=== PATIENT | female | born 1990 | race Caucasian/White ===

== ENCOUNTER → 2018-07-13 13:33 | Outpatient (CLI) | payer SELFPAY ==
[2018-06-22 13:21] VITALS: BMI 25.2
--- NOTE | 2018-07-13 13:36 | US_ITS ---
STUDY: SECOND AND THIRD TRIMESTER OBSTETRICAL ULTRASOUND REASON FOR EXAM: Female, 27 years old. Routine survey. LMP: Unknown. TECHNIQUE: Transabdominal TECHNICAL QUALITY: Adequate. PRIOR ULTRASOUND: None. FINDINGS: There is a single intrauterine fetus. The fetus is in a cephalic, and oblique right presentation. There is demonstrated cardiac activity with a heart rate of 149 bpm. There is a normal amniotic fluid volume. The largest amniotic fluid pocket measures 2.8 cm. The amniotic fluid index (FRANK) is 12.9 cm. The placenta is posterior in location and is not low lying. There are Grade 2 placental changes. The cervix measures 3.6 cm in length. The bilateral adnexal regions are normal. BIOMETRY: BPD: 7.1 cm: 28 weeks, 4 days HC: 27.3 cm: 29 weeks, 6 days AC: 24.4 cm: 28 weeks, 5 days FL: 5.2 cm: 28 weeks, 0 days age by current US: 28 weeks, 6 days. ADA by current US: 09/29/2018. Estimated weight: 1237 grams, +/- 181 grams, 63 %. ANATOMY: Gender: Female Cranium: Normal lateral ventricles. Normal choroid plexus. Normal cerebellum. Normal cisterna magna. Normal face, nose and lips. Chest: Normal 4-chamber heart. Abdomen/Pelvis: Normal diaphragm. Normal stomach, there is subtle hyper echogenicity within the stomach of uncertain etiology. Normal abdominal wall. Normal cord insertion. Normal 3 vessel cord. Normal kidneys. Normal bladder. Spine: Normal cervical spine. Normal thoracic spine. Normal lumbar spine. Normal sacrum. Extremities: Normal bilateral upper extremities. Normal bilateral lower extremities. US/OB Anatomy Scan IMPRESSION: Single live intrauterine at 20 weeks, 6 days by current ultrasound with ADA of 09/29/2018. Heart rate at 149 bpm. No suspicious sonographic findings, there is a subtle hyper echogenicity within the stomach of uncertain etiology. Electronically Signed: Riccardo Santana MD at 15:22 EDT , Service support ,
[2018-07-13 16:22] LABS: Absolute Neutrophil Count 7.8 X10^3/uL (2.0-7.7); Basophil# 0.02 X10^3/uL; Basophil% 0.2 % (0-1); Eosinophils% 1.1 % (0-5); Hematocrit 33.7 % (37-47); Hemoglobin 11.2 g/dl (12.0-15.0); Lymphocyte % 9.5 % (19-41); Mean Corp Hgb Conc 33.2 g/gl (32-36); Mean Corpuscular Hgb 28.6 pg (27.0-32.0); Mean Platelet Vol. 10.1 fl (6.2-12.0); Monocyte% 7.4 % (0-10); Neutrophil # 7.78 X10^3/uL (2.7-7.7); Neutrophil % 81.6 % (47-70); Platelet Count 196 K/mm3 (150-450); RBC Distribution Width CV 13.3 % (11.6-14.6); RBC Distribution Width SD 40.9 fl (35.1-43.9); Red Blood Count 3.92 M/mm3 (4.2-5.4); White Blood Count 9.5 K/mm3 (4.4-11.0)
[2018-07-13 16:32] LABS: Glucose Challenge Gest 1H 50g 102 mg/dL (70-140)
[2018-07-13 16:34] LABS: POSITIVE COUNT NO; POSITIVE DIFFERENTIAL NO; POSITIVE MORPHOLOGY NO
== END ==
PROVIDERS: Nurse Practitioner Women's Health; Referring Provider Obstetrics & Gynecology; Visit Provider Obstetrics & Gynecology
DX: Z34.90 Encounter for supervision of normal pregnancy, unspecified, unspecified trimester (principal)
CPT/HCPCS: 36415; 76805; 82950; 85025; 86850; 86900

== ENCOUNTER → 2018-08-01 15:09 | Outpatient (CLI) | payer SELFPAY ==
[2018-08-01 15:04] VITALS: BMI 25.2
[2018-08-01 16:44] LABS: Rubella IgG 121.9 IU/mL
[2018-08-03 03:29] LABS: Rapid Plasmin Reagin (RPR) NONREACTIVE (NONREACTIVE)
[2018-08-03 10:29] LABS: HEPATITIS B SURFACE AG Negative (Negative)
== END ==
PROVIDERS: Visit Provider Obstetrics & Gynecology
DX: Z34.80 Encounter for supervision of other normal pregnancy, unspecified trimester (principal)
CPT/HCPCS: 36415; 86592; 86762; 87340

== ENCOUNTER → 2018-08-14 17:47 | Outpatient (CLI) | payer SELFPAY ==
[2018-08-14 14:05] VITALS: BMI 25.2
== END ==
PROVIDERS: Referring Provider Obstetrics & Gynecology; Visit Provider Obstetrics & Gynecology
DX: Z34.90 Encounter for supervision of normal pregnancy, unspecified, unspecified trimester (principal)
CPT/HCPCS: 87086; 87088

== ENCOUNTER → 2018-09-10 16:30 | Outpatient (CLI) | payer SELFPAY ==
[2018-09-10 14:37] VITALS: BMI 25.2
== END ==
PROVIDERS: Referring Provider Obstetrics & Gynecology; Visit Provider Obstetrics & Gynecology
DX: Z34.80 Encounter for supervision of other normal pregnancy, unspecified trimester (principal)
CPT/HCPCS: 87081

== ENCOUNTER → 2018-10-03 13:12 | Outpatient (CLI) | payer SELFPAY ==
[2018-10-03 12:43] VITALS: BMI 26.9
[2018-10-03 13:10] VITALS: BMI 27.1
--- NOTE | 2018-10-03 13:17 | US_ITS ---
STUDY: SECOND AND THIRD TRIMESTER OBSTETRICAL ULTRASOUND - LIMITED REASON FOR EXAM: Female, 27 years old. growth assessment. LMP: 12/30/2017, with ADA 10/06/2018. PRIOR ULTRASOUND: None. TECHNIQUE: Transabdominal ultrasound evaluation was performed. FINDINGS: Single live intrauterine gestation, cardiac rate 132 bpm, cephalic presentation with upper neck and shoulders presenting. The cervix is not visualized. Placenta grade 2 posterior not low-lying. The maternal adnexa are not characterized. Amniotic fluid index 14.2 cm, maximum vertical pocket 5.6). BIOMETRY: BPD: 9.8: 40 weeks, 1 days HC: 35.4: 41 weeks, 3 days AC: 35.7: 39 weeks, 4 days FL: 7.5: 38 weeks, 4 days age by prior US: 40 weeks, 0 days. ADA by prior US: 10/03/2018. age by current US: 40 weeks, 4 days. ADA by current US: 09/29/2018. Estimated weight: 3938 grams, +/- 560 grams, 74% percentile. Limited anatomic images was obtained for assessment of dates, positioning and viability. In limited survey no gross anatomic abnormality was observed. US/OB Limited With Biometrics IMPRESSION: No acute or maternal unreality is evident. Cephalic presentation, normal amniotic fluid index. Biometrics is noted above, closely concordant with expected dates. Electronically Signed: Juancarlos Merchant MD at 15:07 EDT Tel , Service support ,
== END ==
PROVIDERS: Referring Provider Obstetrics & Gynecology; Visit Provider Obstetrics & Gynecology
DX: Z34.93 Encounter for supervision of normal pregnancy, unspecified, third trimester (principal); Z3A.39 39 weeks gestation of pregnancy
CPT/HCPCS: 76816

== ENCOUNTER 2018-10-12 03:02 | Inpatient (IN) | payer SELFPAY ==
[2018-10-10 15:06] VITALS: BMI 27.1
[2018-10-12] MEDS: Lactated Ringers 1,000 ML 50 ML IV (03:27)
[2018-10-12 03:29] VITALS: BMI 26.6
[2018-10-12 03:49] LABS: Absolute Lymphocyte Count 1.51 X10^3/uL (0.83-4.51); Absolute Neutrophil Count 8.1 X10^3/uL (2.0-7.7); Basophil# 0.03 X10^3/uL; Basophil% 0.3 % (0-1); Eosinophil# 0.09 X10^3/uL; Eosinophils% 0.9 % (0-5); Hematocrit 37.4 % (37-47); Hemoglobin 12.6 g/dL (12.0-15.0); Lymphocyte # 1.51 X10^3/ul (4.0); Lymphocyte % 14.5 % (19-41); Mean Corp Hgb Conc 33.7 g/dL (32-36); Mean Corpuscular Hgb 28.4 pg (27.0-32.0); Mean Corpuscular Volume 84.2 fL (81-99); Mean Platelet Vol. 10.7 fl (6.2-12.0); Monocyte# 0.67 X10^3/uL; Monocyte% 6.4 % (0-10); NRBC Flagged by Analyzer 0 % (0-5); Neutrophil # 8.08 X10^3/uL (2.7-7.7); Neutrophil % 77.6 % (47-70); Platelet Count 193 K/mm3 (150-450); RBC Distribution Width CV 13.6 % (11.6-14.6); RBC Distribution Width SD 41.7 fl (35.1-43.9); Red Blood Count 4.44 M/mm3 (4.2-5.4); White Blood Count 10.4 K/mm3 (4.4-11.0)
[2018-10-12] MEDS: Oxytocin 30 units/NS 500 ml 30 UNITS/500 ML IV.SOLN 334 UNITS IV (04:04)
--- NOTE | 2018-10-12 04:29 | PCM.HPOB.BLA ---
- Problem List (1) Active labor at term Status: Acute (2) Abnormal test Status: Acute Comment: echogenic stomach (3) Desires (vaginal after ) trial Status: Acute Comment: 88.9% consent signed (4) H/O section Status: Acute Comment: Breech presentation- 2017 (5) Status: Acute Qualifiers: Comment: declines genetic, carrier screening. [facility]. (6) Supervision of other normal Status: Acute Comment: PRR (declines gc chlamydia) ADA 10/06/18 gender surprise PC: Mario Oliver Marie, Anna, Spouse:Enedelia History and Physical Date of Admission: 10/12/18 Intake Vital Signs 10/10/18 Body Mass Index (BMI) 27.1 10/10/18 Height 5 ft 5 in 10/10/18 Weight: 162 lb 10/10/18 Body Mass Index (BMI) 26.9 10/10/18 Blood Pressure 110/80 Intake Visit Reasons: 40 week ob Chief Complaint: est ob Sugar Laboratory Assistant Required: No Is patient in pain?: No Allergies No Known Allergies Allergy (Verified 10/10/18 15:06) Medications vitamin,calcium,xftbahlf-whjm-tyytc acid tablet 1 tab PO DAILY 06/22/18 [History Confirmed 10/10/18] Last Menstral Period: 12/30/17 Zika: Zika virus screening: Negative : No PFSH PFSH Surgical History H/O section (Acute) Social History (Updated 10/11/18 @ 18:27 by Irene Saleem MD) adopted: No household members: family housing: house number of children: 4 current occupation: homemaker pets and animals: No alcohol intake: never do you feel safe at home: Yes additional social history: Spouse: Enedelia Pregancy History 5 Elective abortions Hx Para 4 Spontaneous abortions Hx # Term Pregnancies 4 Ectopic pregnancies Hx # Pregnancies Multiple births # of living children 4 Past Pregnancies Del. Date Name GA/Weeks Outcome Route Bth Weight Gen Labor Lgth Anesthesia Del Locatn Provider FOB Unknown 2010- Melody 40 live - full term 7pounds Female [facility] Unknown 39 live - full term 6pounds 13oz Male [facility] Unknown 2014-Qian 41 live - full term 6 pounds 5 oz Female none [facility] Unknown 2017- Teresa 41 live - full term 6 pounds Female epidural [facility] Delivery Date: On 06/22/18 @ 13:40 Caren Navarro no complications possible 2degree tear Delivery Date: On 06/22/18 @ 13:41 Caren Navarro blood loss- but no replacement therapy given Delivery Date: On 06/22/18 @ 13:41 Caren Navarro No complication Delivery Date: On 06/22/18 @ 13:41 Caren Navarro Breech presentation HPI 40 week ob: Details: BRANDON SANCHEZ is a 27 year old who presents at 6 cm dilated and delivers within 45 minutes without complications. labor total lasted less than 4 hours. OB Visit ADA Calculator Estimated Delivery Date Method Current WG Current Estimate 10/06/18 LMP (Certain) 40w 5d Expected Delivery Route/Plan consent signed Specific Issue/Plans minimal intervention Initial Weight: 140 lb Date EGA Weight BP Urine Prot Glucose FHR FuHt Pres Mov CTX Dilation Effaced St Visit Note 06/22/18 24w 6d 151 lb 8 oz (+11 lb 8 oz) 110/60 150 no vb lof good fm no regular ctx. transfer of care to have . 07/13/18 27w 6d 153 lb (+13 lb) 110/66 Negative Negative 160 27 Active absent No VB, LOF. Had anatomy US prior to this appt today. 08/01/18 30w 4d 155 lb 2 oz (+15 lb 2 oz) 114/70 Negative Negative 150 30 29 Active no vb lof good fm no regular ctx 08/14/18 32w 3d 158 lb (+18 lb) 100/62 08/27/18 34w 2d 160 lb (+20 lb) 116/80 150 34 Active no vb lof good fm no regular ctx. 09/10/18 36w 2d 161 lb 6 oz (+21 lb 6 oz) 136/78 Negative Negative 140 36 Cephalic Active absent 1.5 -1 no vb lof good fm no regular ctx 09/21/18 37w 6d 162 lb (+22 lb) 102/70 Negative Negative 147 37 Cephalic Active absent 1.5 -2 NO reg CTX. NO VB, LOF. 09/28/18 38w 6d 163 lb 3 oz (+23 lb 3 oz) 122/70 Negative Negative 140 37 Cephalic Active absent 1.5 Yes no vb lof good fm n oregular ctx 10/03/18 39w 4d 162 lb (+22 lb) 98/70 98/70 140 37 Cephalic Active transfer of care from F, some nausea intermittent. no vb now, had some bleeding last week previous note from 10/03/18 charted on wrong patient. no vb lof good fm n oregular ctx- get growth us for low fundal height 10/10/18 40w 4d 162 lb (+22 lb) 110/80 Negative Negative 140 no vb lof good fm no regular ctx Visit Notes Visit Date: 10/10/18 ??no vb lof good fm no regular ctx ??Irene Saleem MD on 10/11/18 Visit Date: 10/03/18 ??no vb lof good fm n oregular ctx- get growth us for low fundal height ??Irene Saleem MD on 10/03/18 ??previous note from 10/03/18 charted on wrong patient. ??Irene Saleem MD on 10/03/18 ??[facility] care from [facility], some nausea intermittent. no vb now, had some bleeding last week ??Irene Saleem MD on 10/03/18 Visit Date: 09/28/18 ??no vb lof good fm n oregular ctx ??Irene Saleem MD on 09/28/18 Visit Date: 09/21/18 ??NO reg CTX. NO VB, LOF. ??JAYSHREE Soriano on 09/21/18 Visit Date: 09/10/18 ??no vb lof good fm no regular ctx ??Irene Saleem MD on 09/10/18 Visit Date: 08/27/18 ??no vb lof good fm no regular ctx. ??Irene Saleem MD on 08/27/18 Visit Date: 08/14/18 ??No visit notes to display Visit Date: 08/01/18 ??no vb lof good fm no regular ctx ??Irene Saleem MD on 08/01/18 Visit Date: 07/13/18 ??No VB, LOF. Had anatomy US prior to this appt today. ??Nicolle Mehta NP-C on 07/13/18 Visit Date: 06/22/18 ??no vb lof good fm no regular ctx. transfer of care to have . ??Irene Saleem MD on 06/22/18 ACOG First Trimester First Trimester: Desire for , Alcohol, Tobacco Cessation, Illicit/Recreational Drug/Substance Use, Intimate Partner Violence, Barriers to care, Unstable Housing, Communication Barriers, Environmental/Work Hazards, Anticipated Course of Care, Toxoplasmosis Precations, Use of Any medications, Sexual activity, Exercise, Dental Care, Sauna/Hot tub use, Seat Belt use, Childbirth classes/Hospital facilities, , Travel, Indications for US and Screening for Aneuploidy Second Trimester Second Trimester: Signs and Symptoms of Labor, Selecting a care provider, Reproductive Life Planning, Care Planning, Tobacco Cessation, Depression/Anxiety and Intimate Partner Violence Third Trimester Third Trimester: Pain Management Plans, Labor support person(s), Immediate Larc, Movement Monitoring and Feeding Yes ; discussed Trial of Labor after Counseling or discussed Circumcision preference Diagnostics Diagnostics Labs Blood Type A POSITIVE 07/13/18 Antibody Screen NEGATIVE 07/13/18 Hct 33.7 % (37-47) L 07/13/18 Hgb 11.2 g/dl (12.0-15.0) L 07/13/18 Obstetrics Ultrasound 10/03/18 Rubella IgG Antibody 121.9 IU/mL 08/01/18 RPR NONREACTIVE (NONREACTIVE) 08/01/18 Hep Bs Antigen Negative (Negative) 08/01/18 Glucose 1 Hr 50 gm 102 mg/dL (70-140) 07/13/18 Details: HIV: Urine Culture: Sequential Screen: NIPT Screen: ROS Const Reports system reviewed and no additional complaints, except as docu Card Reports system reviewed and no additional complaints, except as docu Resp Reports system reviewed and no additional complaints, except as docu GI Reports system reviewed and no additional complaints, except as docu, Reports nausea Reports system reviewed and no additional complaints, except as docu Musc Reports system reviewed and no additional complaints, except as docu Exam Const General: cooperative, healthy appearing, comfortable, anxious HENMT Head: normal to inspection Nose: external nose normal Face and sinus: normal facial exam Neck Neck: normal visual inspection, full ROM, no lymphadenopathy Thyroid: thyroid normal Chest Chest palpation & inspection: normal inspection of the chest Resp Effort & Inspection: normal respiratory effort GI Inspection: normal to inspection Palpation: soft, other (gravid uterus) Other: vertex and appropriate size for gestational age Other: Cervical Exam: Extrem General: pedal edema Results [id number] Office Urine Glucose Negative Last Edit by Tierra Khalil on 10/10/18 15:09 Office Urine Protein Negative Last Edit by Tierra Khalil on 10/10/18 15:09 Assessment & Plan 27 yo @ 40w6d presents IAL for TOLAC precipitous spontaneous delivery uncomplicated routine care Orders Orders: POC Urinalysis 2 Dip (Clinic) 10/10/18 Coding Level of Care Code OB Routine Diagnoses Abnormal test O28.9 Desires (vaginal after ) trial O34.219 H/O section Z98.891 Supervision of other normal Z34.80 40 weeks gestation of Z3A.40 ??Weeks of gestation: 40 weeks
--- NOTE | 2018-10-12 04:33 | PCM.OPRPT ---
Problem List (1) Active labor at term Status: Acute (2) Abnormal test Status: Acute Comment: echogenic stomach (3) Desires (vaginal after ) trial Status: Acute Comment: 88.9% consent signed (4) H/O section Status: Acute Comment: Breech presentation- 2017 (5) Status: Acute Qualifiers: Comment: declines genetic, carrier screening. [facility]. (6) Supervision of other normal Status: Acute Comment: PRR (declines gc chlamydia) ADA 10/06/18 gender surprise PC: Mario Oliver Marie, Anna, Spouse:Enedelia Vaginal Delivery Maternal Presentation: Active Labor 27-year-old G5, P4 at 40 weeks 6 days presents in active labor for trial of labor after Amniotic Membrane Rupture Type: Artificial Amniotic Fluid Description: Clear Final ADA: 10/06/18 Gestational age: 40 Weeks and 6 Days Date of Procedure: 10/12/18 Pre-Operative Diagnosis: tolac Post-Operative Diagnosis: Surgery/ Procedure Performed: Spontaneous Vaginal Delivery Type of Anesthesia: Local with 1% lidocaine Description of Procedure: Patient began pushing and delivered the head in the NOMAN presentation. The head was delivered atraumatically . The anterior and posterior shoulders delivered without complication followed by the rest of the infant and the was placed on the maternal abdomen. Delayed cord clamping was employed for approximately 60 seconds. Cord was clamped and cut and gentle traction was applied to the cord and the placenta delivered spontaneously immediately following it was noted to be intact with three-vessel cord. The perineum and vagina were inspected and noted to have a small first-degree perineal laceration that was injected with 1% lidocaine and repaired with a 3-0 Vicryl stitch.. EBL was 500 cc. Patient and tolerated delivery well. Presentation: NOMAN Placental Delivery Description: Spontaneous Placenta Disposition: [facility] Cord Vessel Description: 3 Vessels Cord Entanglement: None Estimated Blood Loss: 500 Infant A gender: Female Episiotomy Description: None Laceration: Perineal Extension/lac, 1st degree Medications given after delivery: IV Pitocin Complications: None
[2018-10-12] MEDS: Oxytocin 30 units/NS 500 ml 30 UNITS/500 ML IV.SOLN 167 UNITS IV (04:34)
[2018-10-12] MEDS: 0.9% Saline Lock 10 ML Syringe IV (05:36)
--- NOTE | 2018-10-12 08:01 | DCINST_ITS ---
Additional Instructions: If you experience any of the following, contact your healthcare provider. * Bleeding that soaks a pad every hour for 2 hours * Fever 100.4 or higher * Unrelieved incision or abdominal pain * Swelling, redness, discharge or bleeding from your incision or episiotomy site * Your incision begins to separate * Problems urinating (including inability to urinate or burning while urinating). * Visual changes * Severe headache * Flu-like symptoms * Pain or redness in one of both of your breasts * Pain, warmth, tenderness or swelling in your legs, especially the calf area * Frequent nausea and vomiting * Symptoms of depression or anxiety If you experience any of the following, call 911 or go to the nearest Emergency Room. * Chest pain * Problems breathing * Seizure activity * Partial or complete paralysis of a body part, slurred speech, weakness or drooping of the face, or a sudden inability to walk or hold your balance Allergies/Adverse Reactions: Allergies No Known Allergies Allergy (Verified 10/10/18 15:06) Medications to take at Discharge vitamin,calcium,yaoquwxm-wzom-jrior acid tablet 1 tab PO DAILY 06/22/18 Primary Care Physician: Care Physician,No Primary [Primary Care Provider] - Test Results: Test results from this visit will be discussed in further detail at your follow- up appointment, if applicable.
--- NOTE | 2018-10-12 08:01 | PCM.DCVAG ---
Additional Instructions: If you experience any of the following, contact your healthcare provider. Bleeding that soaks a pad every hour for 2 hours Fever 100.4 or higher Unrelieved incision or abdominal pain Swelling, redness, discharge or bleeding from your incision or episiotomy site Your incision begins to separate Problems urinating (including inability to urinate or burning while urinating). Visual changes Severe headache Flu-like symptoms Pain or redness in one of both of your breasts Pain, warmth, tenderness or swelling in your legs, especially the calf area Frequent nausea and vomiting Symptoms of depression or anxiety If you experience any of the following, call 911 or go to the nearest Emergency Room. Chest pain Problems breathing Seizure activity Partial or complete paralysis of a body part, slurred speech, weakness or drooping of the face, or a sudden inability to walk or hold your balance Allergies/Adverse Reactions: Allergies No Known Allergies Allergy (Verified 10/10/18 15:06) Medications to take at Discharge vitamin,calcium,xqwwztcx-lcqx-fgadw acid tablet 1 tab PO DAILY 06/22/18 Primary Care Physician: Care Physician,No Primary [Primary Care Provider] - Test Results: Test results from this visit will be discussed in further detail at your follow-up appointment, if applicable.
[2018-10-12 08:15] VITALS: BP 109/68; PULSE 83; RESP 18; TEMP 37.1; O2SAT 99
[2018-10-12 08:53] LABS: HIV - WCH Non-Reactive (Nonreactive)
[2018-10-12 12:00] VITALS: BP 108/63; PULSE 88; RESP 18; TEMP 36.7
[2018-10-12 16:00] VITALS: BP 94/68; PULSE 94; RESP 18; TEMP 36.5
--- NOTE | 2018-10-12 17:37 | NURSING ---
Notified by Yossi Castro in lab that Chlamydia/gonorrhea test unable to run due to gross blood in specimen. Upon chart review it was noted pt had declined this test prenatally. Discussed with pt and pt wishes to decline test at this time. Dr. Hahn aware. No new orders for baby. Will notify Dr. Saleem on rounds.
--- NOTE | 2018-10-12 18:29 | NURSING ---
Reviewed and agree with all charting by Chris WHITMAN
[2018-10-12 20:01] VITALS: BP 97/71; PULSE 88; RESP 16; TEMP 36.7
[2018-10-12 23:58] VITALS: BP 97/60; PULSE 87; RESP 16; TEMP 36.3
[2018-10-13] MEDS: Ibuprofen 600 MG Tablet PO (00:07)
[2018-10-13 03:15] VITALS: BP 95/63; PULSE 81; RESP 18; TEMP 36.2
[2018-10-13 08:00] VITALS: BP 99/58; PULSE 70; RESP 16; TEMP 36.6
--- NOTE | 2018-10-13 10:48 | PCM.PN.OB ---
Patient Problems: Active and Suspected Problems (Last Reviewed 10/10/18 @ 15:06 by Tierra Khalil) Active labor at term (Acute) Subjective: doing well no complaints pain controlled no CP SOB N V ambulating well tolerating po lochia moderate, going well - Physical Exam General: Alert, Oriented x3 Vital Signs Temp Pulse Resp BP Pulse Ox 97.9 F 70 16 99/58 L 99 10/13/18 08:00 10/13/18 08:00 10/13/18 08:00 10/13/18 08:00 10/12/18 08:15 Oxygen Delivery Method Room Air Weight: 160 lb Body Mass Index (BMI) 26.6 Intake and Output for Last 24 Hours 10/11/18 10/12/18 10/13/18 23:59 23:59 23:59 Intake Total 400 / 400 Output Total 450 / 450 Balance -50 / -50 Laboratory Tests Past 24 Hrs 10/12/18 06:30 Chlam trachomat DNA PCR Cancelled N.gonorrhoeae DNA (PCR) Cancelled Medical Necessity - Tobacco Use Smoking Status: Never smoker Assessment/Plan All Active Problems (Last Reviewed 10/10/18 @ 15:06 by Tierra Khalil) Active labor at term (Acute) Abnormal test (Acute) Desires (vaginal after ) trial (Acute) H/O section (Acute) Supervision of other normal (Acute) (Acute) s/p PPD # 1 1. routine post delivery care 2. breast feeding- support given 3. rh positive 4. rubella immune
[2018-10-13 11:31] VITALS: BP 100/67; PULSE 89; RESP 16; TEMP 36.8
== END 2018-10-13 13:35 | disposition home or self-care (01) | DRG 807 ==
PROVIDERS: Admitting Provider Obstetrics & Gynecology; Visit Provider Obstetrics & Gynecology
DX: O34.219 Maternal care for unspecified type scar from previous cesarean delivery (principal); O70.0 First degree perineal laceration during delivery; Z37.0 Single live birth; Z3A.40 40 weeks gestation of pregnancy
CPT/HCPCS: 59050; 85025; 86703; 86850; 86900; 87491; 87591; 99218; J7120; A4216; G0378

== ENCOUNTER → 2018-11-23 14:24 | Outpatient (CLI) | payer SELFPAY ==
[2018-11-23 13:30] VITALS: BMI 26.6
[2018-11-28 12:10] LABS: HPV APTIMA, High Risk Negative (Negative)
== END ==
PROVIDERS: Referring Provider Obstetrics & Gynecology; Visit Provider Obstetrics & Gynecology
DX: Z12.4 Encounter for screening for malignant neoplasm of cervix (principal)
CPT/HCPCS: 87624; 88175; G0145

== ENCOUNTER → 2020-07-15 16:11 | Outpatient (CLI) | payer SELFPAY ==
[2018-11-23 13:30] VITALS: BMI 26.6
--- NOTE | 2020-07-15 16:17 | US_ITS ---
STUDY: SECOND AND THIRD TRIMESTER OBSTETRICAL ULTRASOUND - LIMITED REASON FOR EXAM: Female, 29 years old no care. LMP: Estimated LMP of 03/07/2020. PRIOR ULTRASOUND: None. TECHNIQUE: Transabdominal TECHNICAL QUALITY: Adequate. FINDINGS: There is a single intrauterine fetus. The fetus is in a cephalic presentation. There is demonstrated cardiac activity with a heart rate of 140 bpm. There is a normal amniotic fluid volume. The largest amniotic fluid pocket measures 5.35 cm. The placenta is posterior in location and is not low lying. There are Grade 1 placental changes. The cervix measures 3.08 cm in length. BIOMETRY: BPD: 4.95 cm: 20 weeks, 6 days HC: 17.88 cm: 20 weeks, 2 days AC: 14.75 cm: 20 weeks, 0 days FL: 3.14 cm: 19 weeks, 5 days Age by LMP: 18 weeks, 4 days. ADA by LMP: 12/12/2020. age by current US: 20 weeks, 2 days. ADA by current US: 11/30/2020. Estimated weight: 329 grams, +/- 49 grams, 90 percentile. An incidental finding is the presence of bilateral choroid cysts. US/OB Limited With Biometrics IMPRESSION: 1. Live single intrauterine at 20 weeks, 2 days. ADA is 11/30/2020. 2. EFW of 329 g. This is at the 99th percentile. 3. Adequate amniotic fluid. 4. Posterior grade 1 placenta. 5. Closed cervix at 3.08 cm length. 6. Bilateral choroid plexus cysts. Follow-up is recommended at which time a dedicated evaluation of anatomy couldn''t be performed. Electronically Signed: Stevie Pan DO at 17:58 EDT Tel [phone], Service support ,
== END ==
PROVIDERS: Referring Provider Obstetrics & Gynecology; Visit Provider Obstetrics & Gynecology
DX: O09.32 Supervision of pregnancy with insufficient antenatal care, second trimester (principal); Z3A.20 20 weeks gestation of pregnancy
CPT/HCPCS: 76816

== ENCOUNTER → 2020-07-20 | Outpatient (CLI) | payer SELFPAY ==
[2020-07-20 14:50] VITALS: BMI 25.8
== END | disposition home or self-care (01) ==
LOC: LABSPEC 16:26
PROVIDERS: Referring Provider Obstetrics & Gynecology; Visit Provider Obstetrics & Gynecology
DX: Z34.90 Encounter for supervision of normal pregnancy, unspecified, unspecified trimester (principal)
CPT/HCPCS: 87086; 87088

== ENCOUNTER → 2020-07-28 12:14 | Outpatient (CLI) | payer SELFPAY ==
[2020-07-20 14:50] VITALS: BMI 25.8
--- NOTE | 2020-07-28 12:16 | US_ITS ---
STUDY: SECOND AND THIRD TRIMESTER OBSTETRICAL ULTRASOUND REASON FOR EXAM: Female, 29 years old anatomy LMP: 02/28/2020. TECHNIQUE: Transabdominal and Transvaginal TECHNICAL QUALITY: Adequate. PRIOR ULTRASOUND: Comparison is made with prior study dated 07/15/2020. FINDINGS: There is a single intrauterine fetus. The fetus is in a breech presentation. There is demonstrated cardiac activity with a heart rate of 162 bpm. There is a normal amniotic fluid volume. The largest amniotic fluid pocket measures 5.4 cm x 8.5 cm. The amniotic fluid index (FRANK) is within normal limits. The placenta is posterior in location and is not low lying. The tip of the placenta is 2 cm from the cervical os. There are Grade 0 placental changes. The cervix measures 5 cm in length. The adnexal regions are not visualized. BIOMETRY: BPD: 5.32 cm: 22 weeks, 1 days HC: 20.04 cm: 22 weeks, 1 days AC: 17.25 cm: 22 weeks, 1 days FL: 3.67 cm: 21 weeks, 4 days CI: 79.9% FL/BPD: 60.9% FL/HC: FL/AC: 21.3% HC/AC: 1.16 age by current US: 21 weeks, 5 days. ADA by current US: 12/03/2020. Estimated weight: 469 grams, +/- 70 grams, 66.6 %. age by prior US: 22 weeks, 1 days. ADA by prior US: 11/30/2020. Age by LMP: 21 weeks, 4 days. ADA by LMP: 12/04/2020. ANATOMY: Gender: Male Cranium: Normal lateral ventricles. Stable small bilateral choroid plexus cysts. Normal cerebellum. Normal cisterna magna. Normal face, nose and lips. Chest: Normal 4-chamber heart. Abdomen/Pelvis: Normal diaphragm. Normal stomach. Normal abdominal wall. Normal cord insertion. Normal 3 vessel cord. Normal kidneys. Normal bladder. Spine: Normal cervical spine. Normal thoracic spine. Normal lumbar spine. Normal sacrum. Extremities: Normal bilateral upper extremities. Normal bilateral lower extremities. IMPRESSION: Single live intrauterine gestation with mean gestational age of 22 weeks and 1 day. The measurements obtained today fall within the normal expected range. Stable small bilateral choroid plexus cysts. Electronically Signed: Andrew Carpenter MD at 14:24 EDT , Service support , STUDY: FIRST TRIMESTER OBSTETRICAL ULTRASOUND REASON FOR EXAM: Female, 29 years old cervical length and placental placement. TECHNIQUE: Transvaginal TECHNICAL QUALITY: Adequate. PRIOR ULTRASOUND: None. FINDINGS: The cervical length is 5 cm. The tip of the placenta is 2 cm from the cervical os. US/OB Anatomy Scan IMPRESSION: The tip of the placenta is at 2 cm from the cervical os. Electronically Signed: Andrew Carpenter MD at 14:25 EDT , Service support ,
== END ==
PROVIDERS: Referring Provider Obstetrics & Gynecology; Visit Provider Obstetrics & Gynecology
DX: O09.92 Supervision of high risk pregnancy, unspecified, second trimester (principal); Z3A.22 22 weeks gestation of pregnancy
CPT/HCPCS: 76805; 76817

== ENCOUNTER → 2020-09-14 13:23 | Outpatient (CLI) | payer OTHER, SELFPAY ==
[2020-08-19 12:57] VITALS: BMI 25.8
[2020-09-14 13:53] LABS: Absolute Lymphocyte Count 1.34 X10^3/uL (0.83-4.51); Basophil# 0.03 X10^3/uL; Basophil% 0.3 % (0-1); Eosinophil# 0.12 X10^3/uL; Eosinophils% 1.3 % (0-5); Hematocrit 31.9 % (37-47); Hemoglobin 10.9 g/dL (12.0-15.0); Lymphocyte # 1.34 X10^3/ul (0.83-4.51); Lymphocyte % 14.6 % (19-41); Mean Corp Hgb Conc 34.2 g/dL (32-36); Mean Corpuscular Hgb 29.2 pg (27.0-32.0); Mean Corpuscular Volume 85.5 fL (81-99); Mean Platelet Vol. 9.6 fl (6.2-12.0); Monocyte# 0.66 X10^3/uL; Monocyte% 7.2 % (0-10); NRBC Flagged by Analyzer 0 % (0-5); Neutrophil # 6.99 X10^3/uL (2.7-7.7); Neutrophil % 76.1 % (47-70); Platelet Count 216 K/mm3 (150-450); RBC Distribution Width CV 13.1 % (11.6-14.6); RBC Distribution Width SD 40.2 fl (35.1-43.9); Red Blood Count 3.73 M/mm3 (4.2-5.4); White Blood Count 9.2 K/mm3 (4.4-11.0)
[2020-09-14 14:16] LABS: Glucose Challenge Gest 1H 50g 95 mg/dL (70-140)
[2020-09-14 14:30] LABS: Rubella IgG Reactive (Nonreactive)
== END ==
PROVIDERS: Nurse Practitioner Women's Health; Obstetrics & Gynecology; Referring Provider Obstetrics & Gynecology; Visit Provider Obstetrics & Gynecology
DX: O09.92 Supervision of high risk pregnancy, unspecified, second trimester (principal); Z13.1 Encounter for screening for diabetes mellitus
CPT/HCPCS: 36415; 82950; 85025; 86762; 86850; 86900; 86901

== ENCOUNTER → 2020-11-13 | Outpatient (CLI) | payer OTHER, SELFPAY | END | disposition home or self-care (01) | PROVIDERS: Visit Provider Obstetrics & Gynecology | DX: Z36.85 Encounter for antenatal screening for Streptococcus B (principal) | CPT/HCPCS: 87081 ==

== ENCOUNTER → 2020-11-27 14:20 | Outpatient (CLI) | payer OTHER, SELFPAY ==
[2020-11-27 17:01] LABS: ALB/GLOB Ratio 0.5 RATIO (0.9-2.4); AST(SGOT) 113 U/L (15-37); Alanine Aminotransfer ALT/SGPT 150 U/L (13-56); Albumin, Serum 2.6 g/dL (3.2-5.0); Alkaline Phosphatase 226 U/L (45-117); Anion Gap 7 (5-15); BUN 5 mg/dL (7-18); BUN/Creat Ratio 10.3 RATIO (10-20); Chloride 106 mmol/L (98-107); Creatinine, Serum 0.49 mg/dL (0.55-1.02); EST Glomerular Filtration Rate 157 mL/min (>60); Est Glom Filt Rate - Afr Amer 190 mL/min (>60); Globulin 4.9 g/dL (2.2-4.2); Glucose 96 mg/dL (74-106); Potassium 3.5 mmol/L (3.5-5.1); Protein, Total 7.5 g/dL (6.4-8.2); Sodium Level 135 mmol/L (136-145)
== END ==
PROVIDERS: Referring Provider Obstetrics & Gynecology; Visit Provider Obstetrics & Gynecology
DX: L29.9 Pruritus, unspecified (principal)
CPT/HCPCS: 36415; 80053

== ENCOUNTER 2020-11-30 14:33 | Inpatient (IN) | payer SELFPAY, OTHER ==
[2020-07-20 14:50] VITALS: BMI 25.8
[2020-11-30] VITALS (20 sets, daily range): BP systolic 107–127; BP diastolic 68–82; PULSE 73–99; TEMP 36.1–36.8; O2SAT 97–99; BMI 26.3
--- NOTE | 2020-11-30 14:58 | HP.PCM.OB_ITS ---
HPI - General General Date of Admission: 11/30/20 HPI Narrative BRANDON ACEVEDO, is a 30 F G6, P5 at 39 weeks who presents for induction of labor for cholestasis of . Patient had diffuse itching when seen in the office on Monday. Bile acids are still pending, however patient's liver function tests were noted to be significantly elevated and the recommendation was made to proceed with immediate delivery. Maternal Data Information ADA Calculator Estimated Delivery Date Method Current WG Current Estimate 12/04/20 LMP (Certain) 39w 3d Other Estimates 11/30/20 Ultrasound #1 40w 0d PFSH PFSH Medical History (Updated 11/30/20 @ 17:[address] Edna Peguero MD) Vaginal after Home Medications prenat.vits,alexx,wll-hbjb-vpaiz 1 tab PO DAILY 06/22/18 [History Last Taken 10/11/18] Allergy/AdvReac Type Severity Reaction Status Date / Time No Known Allergies Allergy Verified 11/27/20 13:51 Surgical History H/O section Social History adopted: No household members: family housing: house number of children: 5 current occupation: homemaker pets and animals: No Smoking Status: Never smoker alcohol intake: never do you feel safe at home: Yes additional social history: Spouse: Enedelia History 6 Elective abortions Hx Para 5 Spontaneous abortions Hx # Term Pregnancies 5 Ectopic pregnancies Hx # Pregnancies Multiple births # of living children 5 Past Pregnancies Del. Date Name GA/Weeks Outcome Route Bth Weight Gen Labor Lgth Anesthesia Del Locatn Provider FOB Unknown 2010- Melody 40 live - full term 7pounds Female none [facility] Enedelia Unknown 2012-Mario 39 live - full term 6pounds 13oz Mal e none [facility] Eneedlia Unknown 2014-Qian 41 live - full term 6 pounds 5 oz Fem kevyn none [facility] Enedelia Unknown 2016- Teresa 41 live - full term 6 pounds Fem kevyn epidural [facility] Enedelia 10/12/18 Kay 40 live - full term 7lbs 14oz Female [facility] Dr. Marcanthony Delivery Date: no complications possible 2degree tear Caren Navarro Delivery Date: blood loss- but no replacement therapy given Caren Navarro Delivery Date: No complication Caren Navarro Delivery Date: Breech presentation Caren Navarro Delivery Date: 10/12/18 No notes to display Visit Details Expected Delivery Route/Plan TOLAC patient counseled regarding risks/benefits of trial of labor versus repeat . ACOG/uptodate education given to patient. 94% likelihood of success per calculator TOLAC consent form signed: 10/15 Labor Preferences- CB/BF classes: [] labor support person: [] labor intervention preferences: [] pain management options preferred: [] cut cord/dad catch: [] : [] PP control planned: [] discussed possible routes of delivery and associated risks: [] special requests: [] Plans flu vaccine: [] tdap vaccine: [] rhogam: [] LARC form signed: 10/15 movement and labor precautions reviewed. Problem list reviewed and updated with the most current plan of care details and appropriate orders placed. Relevant counseling for the gestational age provided. Continue routine care and follow up unless otherwise noted in visit notes/problem list details OB Flowsheet Initial Weight: Not Recorded Date -?-?-?-?-?-?-?-?-?-?-?-?- EGA Weight BP Urine Prot -?-?-?-?-?-?-?-?-?-?-?-?- Glucose FHR FuHt Pres Dilation -?-?-?-?-?-?-?-?-?-?-?-?- Effaced St Visit Note 07/20/20 -?-?-?-?-?-?-?-?-?-?-?-?- 20w 3d 155 lb 6 oz 110/78 -?-?-?-?-?-?-?-?-?-?-?-?- 150 -?-?-?-?-?-?-?-?-?-?-?-?- GP - Dated by fo rmal US consistent with LMP 08/19/20 -?-?-?-?-?-?-?-?-?-?-?-?- 24w 5d 159 lb 4 oz 108/66 Nega tive -?-?-?-?-?-?-?-?-?-?-?-?- Negative 149 -?-?-?-?-?-?-?-?-?-?-?-?- MH-Good FM. No V b, LOF. Declines NIPT. Noted choroid plexus cyst on US. Declines labs today. States will do next visit with GCT 09/14/20 -?-?-?-?-?-?-?-?-?-?-?-?- 28w 3d 161 lb 122/66 Negative -?-?-?-?-?-?-?-?-?-?-?-?- Negative 140 -?-?-?-?-?-?-?-?-?-?-?-?- Sm- no vb lof go od fm nor eular ctx declined tdap reviewed 28wk labs 10/15/20 -?-?-?-?-?-?-?-?-?-?-?-?- 32w 6d 161 lb 2 oz 108/70 Nega tive -?-?-?-?-?-?-?-?-?-?-?-?- Negative 140 32 -?-?-?-?-?-?-?-?-?-?-?-?- GP - no LOF, VB, DFM, ctx. TOLAC consent signed. LARC form signed. 10/29/20 -?-?-?-?-?-?-?-?-?-?-?-?- 34w 6d 161 lb 112/78 Negative -?-?-?-?-?-?-?-?-?-?-?-?- Negative 150 34 -?-?-?-?-?-?-?-?-?-?-?-?- GP - no LOF, VB, DFM, ctx. LARC form signed 11/13/20 -?-?-?-?-?-?-?-?-?-?-?-?- 37w 0d 162 lb 112/78 Negative -?-?-?-?-?-?-?-?-?-?-?-?- Negative 140 36 Cephalic 1 -?-?-?-?-?-?-?-?-?-?-?-?- SM- no vb lof go od fm no regular ctx gbs 11/19/20 -?-?-?-?-?-?-?-?-?-?-?-?- 37w 6d 161 lb 6 oz 110/72 Nega tive -?-?-?-?-?-?-?-?-?-?-?-?- Negative 135 37 Cephalic 1 -?-?-?-?-?-?-?-?-?-?-?-?- 50 -2 GP - no LO F, VB, DFM, ctx. Denies complaints 11/27/20 -?-?-?-?-?-?-?-?-?-?-?-?- 39w 0d 161 lb 6 oz 120/82 Nega tive -?-?-?-?-?-?-?-?-?-?-?-?- Negative 135 39 Cephalic 3 -?-?-?-?-?-?-?-?-?-?-?-?- 50 -2 GP - no LO F, VB, dFM, regular ctx. Complaining of whole body itching at night, not present otherwise - cholestasis labs ordered 11/30/20 -?-?-?-?-?-?-?-?-?-?-?-?- 39w 3d 158 lb 4.67 oz 109/68 N egative mg/dl (Negative) -?-?-?-?-?-?-?-?-?-?-?-?- -?-?-?-?-?-?-?-?-?-?-?-?- NST FHR Rate Baby A Baseline: 140 Variability:: Moderate Accelerations:: 15 x 15 Decelerations:: None NST Reactive:: Yes FHR Category:: Category I Uterine Activity:: q3-5 min ROS Eyes Eyes: Reports systems reviewed and no addt'l complaints, except as documented ENT HEENT: Reports systems reviewed and no addt'l complaints, except as documented Cardiovascular Cardiovascular: Reports systems reviewed and no addt'l complaints, except as documented Respiratory/Chest Respiratory/Chest: Reports systems reviewed and no addt'l complaints, except as documented Gastrointestinal Gastrointestinal: Reports systems reviewed and no addt'l complaints, except as documented Genitourinary Genitourinary: Reports systems reviewed and no addt'l complaints, except as documented Musculoskeletal Musculoskeletal: Reports systems reviewed and no addt'l complaints, except as documented Integumentary Integumentary: Reports systems reviewed and no addt'l complaints, except as documented Neurologic Neurologic: Reports systems reviewed and no addt'l complaints, except as documented Psychiatric Psychiatric: Reports systems reviewed and no addt'l complaints, except as documented Endocrine Endocrinology: Reports systems reviewed and no addt'l complaints, except as doc umented Hematologic/Lymphatic Hematologic/Lymphatic: Reports systems reviewed and no addt'l complaints, except as documented Allergic/Immunologic Allergic/Immunologic: Reports systems reviewed and no addt'l complaints, except as documented Vital Signs Vital Signs Vital Signs: Weight Weight: 158 lb 4.67 oz Body Mass Index (BMI) 26.3 Physical Exam Const alert, oriented x3, no apparent distress, average body habitus, healthy appear ing and well nourished HEENT normocephalic and moist oral mucous membranes Head and Scalp: atraumatic Eyes PERRL and EOMs intact bilaterally Neck full ROM Resp normal respiratory effort, no retractions and no use of accessory muscles Cardio regular rate and regular rhythm GI soft to palpation, non-tender and non-distended Extremity normal to inspection and full ROM Skin no rashes or lesions noted Neuro no focal motor deficits and no sensory deficits noted Psych mental status grossly normal, affect normal, speech normal and activity/motor behavior normal Labs Labs Labs: Blood Type A POSITIVE Antibody Screen NEGATIVE Hct 35.5 % (37-47) L Hgb 12.0 g/dL (12.0-15.0) Obstetrics US Syphilis Total Ab Pending Rubella IgG Antibody Reactive (Nonreactive) Hep Bs Antigen Non-Reactive (Nonreactive) HIV 1&2 Antibody Non-Reactive (Nonreactive) C.trachomatis DNA (PCR) Pending Glucose 1 Hr 50 gm 95 mg/dL (70-140) Rhogam given: No Miscellaneous Test Pending Assessment & Plan (1) Hx of section: COMMENT: 4th for breech followed by successful . Desires TOLAC. (2) : QUALIFIERS: Weeks of gestation: 39 weeks Qualified Code(s): Z3A.39 - 39 weeks gestation of COMMENT: Discussed NIPT and carrier. Anatomy normal besides choroid plexus cyst still noted. (3) Supervision of high-risk : QUALIFIERS: Trimester: second trimester Qualified Code(s): O09.92 - Supervision of high risk , unspecified, second trimester COMMENT: PRR (SP labs) ADA 12/04/20 PC: Mario Oliver Marie, Anna, Rosanna, Spouse:Enedelia (4) Late care: COMMENT: Dated by 20w US consistent with LMP (5) Choroid plexus cyst of fetus: COMMENT: Bilateral on dating scan. Offered NIPT/declines. (6) Anemia affecting : QUALIFIERS: Trimester: third trimester Qualified Code(s): O99.013 - Anemia complicating , third trimester COMMENT: Start iron (7) Cholestasis of : QUALIFIERS: Trimester: third trimester Qualified Code(s): O26.613 - Liver and biliary tract disorders in , third trimester; K83.1 - Obstruction of bile duct COMMENT: Bile acids pending, but LFTs significantly elevated (8) Encounter for induction of labor: PLAN: Patient presents IOL, plan management for with pitocin/AROM. Pain management: plans epidural. GBS negative. Management of any complications: none I have reviewed the [facility] and made any clinically relevant updates.
[2020-11-30] MEDS: Lactated Ringers 1,000 ML 50 ML IV ×2 (15:20→21:10)
[2020-11-30 16:01] LABS: Absolute Lymphocyte Count 1.24 X10^3/uL (0.83-4.51); Absolute Neutrophil Count 8.4 X10^3/uL (2.0-7.7); Basophil# 0.04 X10^3/uL; Basophil% 0.4 % (0-1); Eosinophils% 0.9 % (0-5); Hematocrit 35.5 % (37-47); Lymphocyte # 1.24 X10^3/ul (0.83-4.51); Lymphocyte % 11.8 % (19-41); Mean Corp Hgb Conc 33.8 g/dL (32-36); Mean Corpuscular Hgb 29.3 pg (27.0-32.0); Mean Corpuscular Volume 86.8 fL (81-99); Mean Platelet Vol. 10.5 fl (6.2-12.0); Monocyte# 0.69 X10^3/uL; Monocyte% 6.6 % (0-10); NRBC Flagged by Analyzer 0 % (0-5); Neutrophil # 8.42 X10^3/uL (2.7-7.7); Neutrophil % 79.9 % (47-70); Platelet Count 218 K/mm3 (150-450); RBC Distribution Width CV 13.2 % (11.6-14.6); RBC Distribution Width SD 40.9 fl (35.1-43.9); Red Blood Count 4.09 M/mm3 (4.2-5.4); White Blood Count 10.5 K/mm3 (4.4-11.0)
[2020-11-30 16:42] LABS: Bacteria 0 SEEN /hpf (None Seen); Mucous, Urine 0 SEEN /hpf (<or=2+); Red Blood Cells-Urine 0 SEEN /hpf (0-5)
[2020-11-30 17:01] LABS: Color, Urine Yellow (Yellow); Glucose, Dipstick Normal (Normal); Ketone-Dipstick Negative (Negative); Leukocyte Esterase-Dipstick 500 /ul (Negative); Nitrite-Dipstick Negative (Negative); Occult Blood-Urine Negative /ul (Negative); Protein-Dipstick Negative (Negative); Urine Bilirubin Dipstick Negative (Negative); Urine Clarity Clear (Clear); Urine Urobilinogen Normal (Normal); Urine pH 6.5 (5.0 - 8.0)
[2020-11-30 17:12] LABS: HIV - WCH Non-Reactive (Nonreactive); Hepatitis B Surface Antigen Non-Reactive (Nonreactive); Hepatitis C Antibody Non-Reactive (Nonreactive)
[2020-11-30 17:24] LABS: Squamous Epithelial Cells - UA 0-5 SEEN /hpf (5-10); White Blood Cells 0-5 SEEN /hpf (0-5)
[2020-11-30 18:24] LABS: Chlamydia Trachomatis by PCR Negative (Negative); Neisserai gonorrhoeae by PCR Negative (Negative); Probe Check PASS; Sample Adequacy Control PASS; Specimen Processing Control PASS
[2020-11-30] MEDS: Oxytocin 30 units/NS 500 ml 30 UNITS/500 ML IV.SOLN IV (18:34)
[2020-11-30] MEDS: Lactated Ringers 500 ML 999 ML IV (19:03)
[2020-11-30] MEDS: Oxytocin 30 units/NS 500 ml 30 UNITS/500 ML IV.SOLN 334 UNITS IV (22:13)
[2020-11-30] MEDS: Methylergonovine 0.2 MG/ML Ampul IM (22:17)
--- NOTE | 2020-11-30 22:29 | EX.PCM.OBRPT ---
Assessment & Plan (1) Encounter for induction of labor: (2) Cholestasis of : QUALIFIERS: Trimester: third trimester Qualified Code(s): O26.613 - Liver and biliary tract disorders in , third trimester; K83.1 - Obstruction of bile duct COMMENT: Bile acids and LFTs elevated (3) Hx of section: COMMENT: 4th for breech followed by successful . Desires TOLAC. (4) : QUALIFIERS: Weeks of gestation: 39 weeks Qualified Code(s): Z3A.39 - 39 weeks gestation of COMMENT: Discussed NIPT and carrier. Anatomy normal besides choroid plexus cyst still noted. (5) Supervision of high-risk : QUALIFIERS: Trimester: second trimester Qualified Code(s): O09.92 - Supervision of high risk , unspecified, second trimester COMMENT: PRR (SP labs) ADA 12/04/20 PC: Mario Oliver Marie, Anna, Rosanna, Spouse:Enedelia (6) Late care: COMMENT: Dated by 20w US consistent with LMP (7) Choroid plexus cyst of fetus: COMMENT: Bilateral on dating scan. Offered NIPT/declines. (8) Anemia affecting : QUALIFIERS: Trimester: third trimester Qualified Code(s): O99.013 - Anemia complicating , third trimester COMMENT: Start iron Maternal Data Information ADA Calculator Estimated Delivery Date Method Current WG Current Estimate 12/04/20 LMP (Certain) 39w 3d Other Estimates 11/30/20 Ultrasound #1 40w 0d Vaginal Delivery Maternal Presentation Maternal Presentation: Medically Indicated Induction Maternal Presentation: 30-year-old G6, P5 at 38 weeks gestation admitted for induction of labor for cholestasis of Medical Reason for Induction: Maternal Medical Condition: list: (Cholestasis) Operative Information Date of Procedure: 11/30/20 Pre-Operative Diagnosis: Term , cholestasis of Post-Operative Diagnosis: Same Surgery / Procedure Performed: Spontaneous Vaginal Delivery Type of Anesthesia: None Drain: Hollingsworth to straight drain Estimated Blood Loss: 300 Findings Description of Procedure: Patient began pushing and delivered the head in the MONA presentation. The head was delivered atraumatically And no nuchal cord was noted. The anterior and posterior shoulders delivered without complication followed by the rest of the and the infant was placed on the maternal abdomen. Delayed cord clamping was employed for approximately 60 seconds. Cord was clamped and cut and gentle traction was applied to the cord and the placenta delivered spontaneously immediately following it was noted to be intact with three-vessel cord. The perineum and vagina were inspected and noted to have no laceration. EBL was 300cc. Patient and tolerated delivery well. Presentation: Vertex and MONA Amniotic Membrane Rupture Type: Artificial Amniotic Fluid Description: Clear Placental Delivery Description: Spontaneous Placenta Disposition: [facility] Cord Vessel Description: 3 Vessels Cord Entanglement: None A Gender: Male Delayed Cord Clamping: Yes Post Vaginal Delivery Medications Given After Delivery: IV Pitocin and IM Methergin Episiotomy Description: None Laceration: None Complication Complications: None Procedures Urinary/Genital [id number]: [id number] Vaginal Delivery [facility]
--- NOTE | 2020-11-30 22:38 | PCM.DC ---
Discharge Instructions Diet Discharge Diet: No restrictions Activity Discharge Activity: Return to Normal Activity, May Not Drive (while taking narcotic pain medications.) and May Shower May resume sexual activity in: 4-6 weeks Dressing / Incision Call your doctor if your incision/area has: Continuous Slow Oozing, Sudden Increased Bleeding, Increased Pain/ Swelling, Increased Redness and Foul Smelling Discharge Follow Up Care When: Call to make an appointment with your doctor in 6 weeks. If you had elevated Blood Pressure or 4th degree laceration you will need to be seen in 2 weeks. Test Results: Test results from this visit will be discussed in further detail at your follow-up appointment, if applicable. Discharge Plan Admission Admit Date/Time: 11/30/20 14:33 Attending Provider: Edna Peguero Primary Care Provider: Care Physician,No Primary Instructions Patient Instructions: After a Vaginal Discharge Orders/Prescriptions Prescriptions: New ibuprofen 800 mg tablet 800 mg PO Q8H PRN (Reason: pain) Qty: 30 RF: 1 Continued prenat.vits,alexx,kji-bwwi-ajzkz tablet 1 tab PO DAILY RF: 0 Referrals / Follow Up: Care Physician,No Primary [Primary Care Provider] -
[2020-12-01] VITALS (13 sets, daily range): BP systolic 100–120; BP diastolic 56–79; PULSE 74–91; RESP 16; TEMP 36.2–36.8; O2SAT 98
[2020-12-01] MEDS: 0.9% Saline Lock 10 ML Syringe IV (00:48)
--- NOTE | 2020-12-01 01:05 | NURSING ---
report given to jose e BOB. that rn to assume care of couplet at this time
[2020-12-01 08:49] LABS: Syphilis Antibodies Non-reactive
[2020-12-01] MEDS: Ibuprofen 600 MG Tablet PO ×2 (09:11→17:49)
--- NOTE | 2020-12-01 11:52 | PN.OBGYN_ITS ---
Subjective Subjective Patient doing well without complaints. Tolerating PO. Ambulating and voiding without difficulty. Breast feeding well. Denies chest pain, shortness of breath, calf pain/swelling, fevers, chills, lightheadedness. Objective Data Objective Data Vital Signs: Vital Signs Temp Pulse Resp BP Pulse Ox 98.1 F 81 16 116/69 98 12/01/20 09:00 12/01/20 09:00 12/01/20 09:00 12/01/20 09:00 12/01/20 09:00 Oxygen Delivery Method Room Air Weight: 158 lb 4.67 oz Body Mass Index (BMI) 26.3 Intake & Output: Intake and Output for Last 24 Hours 11/29/20 11/30/20 12/01/20 23:59 23:59 23:59 Intake Total 989.83 / 989.83 1333 / 1333 Output Total 1200 / 1200 Balance 989.83 / 989.83 133 / 133 Lab / Micro Data Result Diagrams: 11/30/20 15:20 Labs: Laboratory Results - last 24 hr 11/30/20 15:20: WBC 10.5, RBC 4.09 L, Hgb 12.0, Hct 35.5 L, MCV 86.8, MCH 29.3, MCHC 33.8, RDW Std Deviation 40.9, RDW Coeff of Shelton 13.2, Plt Count 218, MPV 10.5, Immature Gran % (Auto) 0.400, Neut % (Auto) 79.9 H, Lymph % (Auto) 11.8 L, [place] % (Auto) 6.6, Eos % (Auto) 0.9, Baso % (Auto) 0.4, Absolute Neuts (auto) 8.4 H, Absolute Lymphs (auto) 1.24, Nucleated RBC % 0 11/30/20 15:20: Blood Type A POSITIVE, Antibody Screen NEGATIVE 11/30/20 15:20: Syphilis Total Ab Non-reactive 11/30/20 15:20: Hep Bs Antigen Non-Reactive, Hepatitis C Antibody Non-Reactive, HIV 1&2 Antibody Non-Reactive 11/30/20 16:30: Urine Color Yellow, Urine Clarity Clear, Urine pH 6.5, Ur Specific [place]ushing 1.010, Urine Protein Negative, Urine Glucose (UA) Normal, Urine Ketones Negative, Urine Occult Blood Negative, Urine Nitrite Negative, Urine Bilirubin Negative, Urine Urobilinogen Normal, Ur Leukocyte Esterase 500 H, Urine RBC 0 SEEN, Urine WBC 0-5 SEEN, Ur Squamous Epith Cells 0-5 SEEN, Urine Bacteria 0 SEEN, Urine Mucus 0 SEEN 11/30/20 16:30: Chlam trachomat DNA PCR Negative, N.gonorrhoeae DNA (PCR) Negative Micro: Microbiology 11/30/20 15:20 Nasal Secretion SARS-CoV-2 Antigen (Rapid) - Final ROS Constitutional Constitutional: Denies fever(s) Cardiovascular Cardiovascular: Denies chest pain, dyspnea or lightheadedness Gastrointestinal Gastrointestinal: Reports abdominal pain; Denies constipation or diarrhea Neurologic Neurologic: Denies dizziness or headache(s) Physical Exam Const alert, oriented x3, no apparent distress, average body habitus, healthy appear ing and well nourished HEENT normocephalic Head and Scalp: atraumatic Eyes PERRL and EOMs intact bilaterally Neck full ROM Lymph Lymphatic: no lymphadenopathy noted Resp normal respiratory effort, no retractions and no use of accessory muscles Cardio regular rate GI soft to palpation, non-tender and non-distended Palpation: other Other Details: fundus firm Extremity normal to inspection and no clubbing, cyanosis or edema Skin no rashes or lesions noted Neuro no focal motor deficits and no sensory deficits noted Psych mental status grossly normal, affect normal and speech normal Assessment & Plan (1) Spontaneous vaginal delivery: COMMENT: GP IOL-Cholestasis 11/30 Boy-Jian PLAN: s/p PPD # 1 1. routine post delivery care 2. breast feeding- support given 3. rh positive 4. rubella immune
[2020-12-02 01:36] VITALS: BP 85/50; PULSE 82
[2020-12-02 01:37] VITALS: BP 93/55; PULSE 77
[2020-12-02 01:38] VITALS: BP 93/55; PULSE 77; RESP 16; TEMP 36.5
[2020-12-02] MEDS: Acetaminophen 500 MG Tablet 1000 MG PO (01:42)
--- NOTE | 2020-12-02 08:28 | PN.OBGYN_ITS ---
Subjective Subjective Patient doing well without complaints. Tolerating PO. Ambulating and voiding without difficulty. Breast feeding well. Denies chest pain, shortness of breath, calf pain/swelling, fevers, chills, lightheadedness. Objective Data Objective Data Vital Signs: Vital Signs Temp Pulse Resp BP Pulse Ox 97.7 F L 77 16 93/55 L 98 12/02/20 01:38 12/02/20 01:38 12/02/20 01:38 12/02/20 01:38 12/01/20 09:00 Oxygen Delivery Method Room Air Weight: 158 lb 4.67 oz Body Mass Index (BMI) 26.3 Intake & Output: Intake and Output for Last 24 Hours 11/30/20 12/01/20 12/02/20 23:59 23:59 23:59 Intake Total 989.83 / 989.83 1333 / 1333 Output Total 1200 / 1200 Balance 989.83 / 989.83 133 / 133 Lab / Micro Data Result Diagrams: 11/30/20 15:20 Labs: Laboratory Results - last 24 hr 11/30/20 15:20: Syphilis Total Ab Non-reactive Micro: Microbiology 11/30/20 15:20 Nasal Secretion SARS-CoV-2 Antigen (Rapid) - Final ROS Constitutional Constitutional: Denies fever(s) Cardiovascular Cardiovascular: Denies chest pain, dyspnea or lightheadedness Gastrointestinal Gastrointestinal: Reports abdominal pain; Denies constipation or diarrhea Neurologic Neurologic: Denies dizziness or headache(s) Physical Exam Const alert, oriented x3, no apparent distress, average body habitus, healthy appeari ng and well nourished HEENT normocephalic Head and Scalp: atraumatic Eyes PERRL and EOMs intact bilaterally Neck full ROM Lymph Lymphatic: no lymphadenopathy noted Resp normal respiratory effort, no retractions and no use of accessory muscles Cardio regular rate GI soft to palpation, non-tender and non-distended Palpation: other Other Details: fundus firm Extremity normal to inspection and no clubbing, cyanosis or edema Skin no rashes or lesions noted Neuro no focal motor deficits and no sensory deficits noted Psych mental status grossly normal, affect normal and speech normal Assessment & Plan (1) Spontaneous vaginal delivery: COMMENT: GP IOL-Cholestasis 11/30 Boy-Jian PLAN: s/p PPD # 2 1. routine post delivery care 2. breast feeding- support given 3. rh positive 4. rubella immune
[2020-12-02 09:24] VITALS: BP 105/67; PULSE 81; PULSE 82; PULSE 83; RESP 16; TEMP 36.6; O2SAT 97; O2SAT 99
== END 2020-12-02 10:20 | disposition home or self-care (01) | DRG 805 ==
PROVIDERS: Admitting Provider Obstetrics & Gynecology; Visit Provider Obstetrics & Gynecology
DX: O34.219 Maternal care for unspecified type scar from previous cesarean delivery (principal); K83.1 Obstruction of bile duct; O26.62 Liver and biliary tract disorders in childbirth; O99.02 Anemia complicating childbirth; D64.9 Anemia, unspecified; O35.8XX0 Maternal care for other (suspected) fetal abnormality and damage, not applicable or unspecified; Z37.0 Single live birth; Z3A.39 39 weeks gestation of pregnancy; Z87.59 Personal history of other complications of pregnancy, childbirth and the puerperium
CPT/HCPCS: 59025; 59050; 81001; 85025; 86703; 86780; 86803; 86850; 86900; 86901; 87340; 87426; 87491; 87591; 99218; J7120; A4216; G0378

== ENCOUNTER → 2023-01-30 | Outpatient (CLI) | payer SELFPAY ==
[2023-01-30 15:57] LABS: Absolute Lymphocyte Count 1.43 X10^3/uL (0.83-4.51); Absolute Neutrophil Count 5.5 X10^3/uL (2.0-7.7); Basophil# 0.04 X10^3/uL; Basophil% 0.5 % (0-1); Eosinophil# 0.14 X10^3/uL; Eosinophils% 1.8 % (0-5); Hemoglobin 11.9 g/dL (12.0-15.0); Lymphocyte # 1.43 X10^3/ul (0.83-4.51); Lymphocyte % 18.6 % (19-41); Mean Corp Hgb Conc 32.2 g/dL (32-36); Mean Corpuscular Volume 83.9 fL (81-99); Monocyte# 0.52 X10^3/uL; Monocyte% 6.8 % (0-10); NRBC Flagged by Analyzer 0 % (0-5); Neutrophil # 5.52 X10^3/uL (2.7-7.7); Platelet Count 256 K/mm3 (150-450); RBC Distribution Width CV 13.2 % (11.6-14.6); Red Blood Count 4.41 M/mm3 (4.2-5.4); White Blood Count 7.7 K/mm3 (4.4-11.0)
[2023-01-30 16:44] LABS: hCG Titer Quant., Serum 18 mIU/mL (1-3)
[2023-01-30 17:05] LABS: HIV - WCH Non-Reactive (Nonreactive); Hepatitis B Surface Antigen Non-Reactive (Nonreactive); Hepatitis C Antibody Non-Reactive (Nonreactive); Rubella IgG Reactive (Nonreactive); Syphilis Antibodies Non-reactive
== END | disposition home or self-care (01) ==
LOC: PAVLAB 15:37
PROVIDERS: Referring Provider Registered Nurse; Visit Provider Registered Nurse
DX: Z34.90 Encounter for supervision of normal pregnancy, unspecified, unspecified trimester (principal)
CPT/HCPCS: 36415; 84702; 85025; 86703; 86762; 86780; 86803; 86850; 86900; 86901; 87340

== ENCOUNTER → 2023-11-10 | Outpatient (CLI) | payer OTHER, SELFPAY ==
[2023-11-10 12:44] LABS: Absolute Lymphocyte Count 1.18 X10^3/uL (0.83-4.51); Absolute Neutrophil Count 6.5 X10^3/uL (2.0-7.7); Basophil# 0.04 X10^3/uL; Basophil% 0.5 % (0-1); Eosinophil# 0.07 X10^3/uL; Eosinophils% 0.8 % (0-5); Hematocrit 34.5 % (37-47); Hemoglobin 11.6 g/dL (12.0-15.0); Lymphocyte # 1.18 X10^3/ul (0.83-4.51); Lymphocyte % 14.3 % (19-41); Mean Corp Hgb Conc 33.6 g/dL (32-36); Mean Corpuscular Hgb 27.8 pg (27.0-32.0); Mean Corpuscular Volume 82.7 fL (81-99); Mean Platelet Vol. 9.8 fl (6.2-12.0); Monocyte# 0.45 X10^3/uL; Monocyte% 5.4 % (0-10); NRBC Flagged by Analyzer 0 % (0-5); Neutrophil # 6.49 X10^3/uL (2.7-7.7); Neutrophil % 78.5 % (47-70); Platelet Count 216 K/mm3 (150-450); RBC Distribution Width CV 13.8 % (11.6-14.6); RBC Distribution Width SD 41.2 fl (35.1-43.9); Red Blood Count 4.17 M/mm3 (4.2-5.4); White Blood Count 8.3 K/mm3 (4.4-11.0)
[2023-11-10 13:59] LABS: HIV - WCH Non-Reactive (Nonreactive); Hepatitis B Surface Antigen Non-Reactive (Nonreactive); Hepatitis C Antibody Non-Reactive (Nonreactive); Rubella IgG Reactive (Nonreactive); Syphilis Antibodies Non-reactive
[2023-11-13 20:07] LABS: Chlamydia By Nucleic Acid AMP Negative (Negative); Gonococcus By Nucleic Acid AMP Negative (Negative)
== END | disposition home or self-care (01) ==
PROVIDERS: Referring Provider Registered Nurse; Visit Provider Registered Nurse
DX: O09.90 Supervision of high risk pregnancy, unspecified, unspecified trimester (principal); Z3A.00 Weeks of gestation of pregnancy not specified
CPT/HCPCS: 36415; 85025; 86703; 86762; 86780; 86803; 86850; 86900; 86901; 87086; 87088; 87340; 87491; 87591

== ENCOUNTER → 2023-11-21 | Outpatient (CLI) | payer SELFPAY, OTHER ==
--- NOTE | 2023-11-21 13:23 | US_ITS ---
STUDY: SECOND AND THIRD TRIMESTER OBSTETRICAL ULTRASOUND REASON FOR EXAM: Female, 33 years old anatomy scan LMP: June 16, 2023. TECHNIQUE: Transabdominal and Transvaginal TECHNICAL QUALITY: Adequate. PRIOR ULTRASOUND: None. FINDINGS: There is a single intrauterine fetus. The fetus is in a cephalic presentation. There is demonstrated cardiac activity with a heart rate of 150 bpm. There is a normal amniotic fluid volume. The largest amniotic fluid pocket measures 6.1 cm. The amniotic fluid index (FRANK) is within normal limits. The placenta is anterior in location and is not low lying. There are Grade 0 placental changes. The cervix measures 4.3 cm in length. The adnexal regions are not visualized. BIOMETRY: BPD: 4.57 cm: 19 weeks, 6 days HC: 16.56 cm: 19 weeks, 2 days AC: 13.03 cm: 18 weeks, 4 days FL: 2.73 cm: 18 weeks, 2 days CI: 80.2% FL/BPD: 59.8% FL/HC: 16.5% FL/AC: 21% HC/AC: 1.27 age by current US: 19 weeks, 0 days. ADA by current US: April 16, 2024. Estimated weight: 250 grams, +/- 37 grams, 1 %. Age by LMP: 22 weeks, 4 days. ADA by LMP: Neal third 2024. ANATOMY: Gender: Indeterminant Cranium: Normal lateral ventricles. Normal choroid plexus. Normal cerebellum. Normal cisterna magna. Normal face, nose and lips. Chest: Normal 4-chamber heart. Abdomen/Pelvis: Normal diaphragm. Normal stomach. Normal abdominal wall. Normal cord insertion. Normal 3 vessel cord. Normal kidneys. Normal bladder. Spine: Normal cervical spine. Normal thoracic spine. Normal lumbar spine. Normal sacrum. Extremities: Normal bilateral upper extremities. Normal bilateral lower extremities. IMPRESSION: Single live intrauterine gestation with a mean gestational age of 19 weeks. weight is 20 50 g. This is below the 1st percentile. Electronically Signed: Andrew Carpenter MD at 15:18 EDT , STUDY: FIRST TRIMESTER OBSTETRICAL ULTRASOUND REASON FOR EXAM: Female, 33 years old . Cervical length LMP: June 16, 2023. TECHNIQUE: Transvaginal TECHNICAL QUALITY: Adequate. PRIOR ULTRASOUND: None. FINDINGS: The cervical length measures 4.3 cm. US/OB Anatomy w/ Transvaginal IMPRESSION: Cervical length measures 4.3 cm. Electronically Signed: Andrew Carpenter MD at 15:18 EDT ,
== END | disposition home or self-care (01) ==
LOC: OPUS 13:22
PROVIDERS: Referring Provider Registered Nurse; Visit Provider Registered Nurse
DX: O09.90 Supervision of high risk pregnancy, unspecified, unspecified trimester (principal); Z98.891 History of uterine scar from previous surgery
CPT/HCPCS: 76805; 76817

== ENCOUNTER → 2024-01-10 | Outpatient (CLI) | payer OTHER, SELFPAY ==
--- NOTE | 2024-01-10 11:26 | US_ITS ---
STUDY: SECOND AND THIRD TRIMESTER OBSTETRICAL ULTRASOUND REASON FOR EXAM: Female, 33 years old growth -- due date changed based on previouis ultrasound LMP: 07/11/2023 TECHNIQUE: Transabdominal TECHNICAL QUALITY: Adequate. PRIOR ULTRASOUND: 11/21/2023 FINDINGS: There is a single intrauterine fetus. The fetus is in an transverse lie with the head on the maternal left side. There is demonstrated cardiac activity with a heart rate of 147 bpm. There is a normal amniotic fluid volume. The largest amniotic fluid pocket measures 8.3 cm. The amniotic fluid index (FRANK) is cm. The placenta is anterior in location and is not low lying. There are Grade 0 placental changes. The cervix measures 4.1 cm in length. The bilateral adnexal regions are normal. BIOMETRY: BPD: 6.9 cm: 27 weeks, 5 days HC: 25.5 cm: 27 weeks, 5 days AC: 21.5 cm: 26 weeks, 0 days FL: 4.5 cm: 24 weeks, 6 days CI: 76.75 FL/BPD: 65.26 FL/HC: 17.71 FL/AC: 20.99 HC/AC: 1.19 age by current US: 26 weeks, 6 days. ADA by current US: 04/11/2024. Estimated weight: 865 grams, +/- 1:30 grams, 29 %. age by prior US: weeks, days. ADA by prior US: . Age by LMP: 26 weeks, 1 days. ADA by LMP: 04/16/2024. US/OB Limited With Biometrics IMPRESSION: Living intrauterine of 26 weeks 6 days as described above. Electronically Signed: Juancarlos Aleman MD at 9:46 EDT ,
[2024-01-10 17:12] LABS: Absolute Lymphocyte Count 1.25 X10^3/uL (0.83-4.51); Absolute Neutrophil Count 8.6 X10^3/uL (2.0-7.7); Basophil# 0.04 X10^3/uL; Basophil% 0.4 % (0-1); Eosinophils% 0.9 % (0-5); Hematocrit 35.1 % (37-47); Hemoglobin 11.3 g/dL (12.0-15.0); Lymphocyte # 1.25 X10^3/ul (0.83-4.51); Lymphocyte % 11.8 % (19-41); Mean Corp Hgb Conc 32.2 g/dL (32-36); Mean Corpuscular Hgb 28.2 pg (27.0-32.0); Mean Corpuscular Volume 87.5 fL (81-99); Mean Platelet Vol. 10.2 fl (6.2-12.0); Monocyte# 0.56 X10^3/uL; Monocyte% 5.3 % (0-10); NRBC Flagged by Analyzer 0 % (0-5); Neutrophil # 8.58 X10^3/uL (2.7-7.7); Neutrophil % 81.2 % (47-70); Platelet Count 254 K/mm3 (150-450); RBC Distribution Width CV 13.3 % (11.6-14.6); RBC Distribution Width SD 42.8 fl (35.1-43.9); Red Blood Count 4.01 M/mm3 (4.2-5.4); White Blood Count 10.6 K/mm3 (4.4-11.0)
[2024-01-10 17:15] LABS: Glucose Challenge Gest 1H 50g 100 mg/dL (70-140)
[2024-01-11 02:29] LABS: HIV - WCH Non-Reactive (Nonreactive); Syphilis Antibodies Non-reactive
== END | disposition home or self-care (01) ==
PROVIDERS: PCP Orthopaedic Surgery; Referring Provider Obstetrics & Gynecology; Visit Provider Obstetrics & Gynecology
DX: O09.90 Supervision of high risk pregnancy, unspecified, unspecified trimester (principal); Z13.1 Encounter for screening for diabetes mellitus; Z3A.00 Weeks of gestation of pregnancy not specified
CPT/HCPCS: 36415; 76816; 82950; 85025; 86703; 86780

== ENCOUNTER → 2024-03-19 | Outpatient (CLI) | payer OTHER, SELFPAY | END | disposition home or self-care (01) | PROVIDERS: PCP Orthopaedic Surgery; Referring Provider Advanced Practice Midwife; Visit Provider Advanced Practice Midwife | DX: O09.92 Supervision of high risk pregnancy, unspecified, second trimester (principal); Z3A.00 Weeks of gestation of pregnancy not specified | CPT/HCPCS: 87081 ==

== ENCOUNTER 2024-04-16 12:25 | Inpatient (IN) | payer OTHER, SELFPAY ==
[2024-04-16] VITALS (22 sets, daily range): BP systolic 106–126; BP diastolic 69–79; PULSE 86–153; RESP 16–18; TEMP 36.1–37.2; O2SAT 94–100; BMI 26.7
[2024-04-16 13:36] LABS: Absolute Lymphocyte Count 1.21 X10^3/uL (0.83-4.51); Absolute Neutrophil Count 7.6 X10^3/uL (2.0-7.7); Basophil# 0.04 X10^3/uL; Basophil% 0.4 % (0-1); Eosinophil# 0.08 X10^3/uL; Eosinophils% 0.8 % (0-5); Hematocrit 34.4 % (37-47); Hemoglobin 11.5 g/dL (12.0-15.0); Lymphocyte # 1.21 X10^3/ul (0.83-4.51); Lymphocyte % 12.6 % (19-41); Mean Corp Hgb Conc 33.4 g/dL (32-36); Mean Corpuscular Hgb 27.8 pg (27.0-32.0); Mean Corpuscular Volume 83.3 fL (81-99); Mean Platelet Vol. 10.1 fl (6.2-12.0); Monocyte# 0.61 X10^3/uL; Monocyte% 6.4 % (0-10); NRBC Flagged by Analyzer 0 % (0-5); Neutrophil # 7.58 X10^3/uL (2.7-7.7); Neutrophil % 79.3 % (47-70); Platelet Count 250 K/mm3 (150-450); RBC Distribution Width CV 13.7 % (11.6-14.6); RBC Distribution Width SD 41.8 fl (35.1-43.9); Red Blood Count 4.13 M/mm3 (4.2-5.4); White Blood Count 9.6 K/mm3 (4.4-11.0)
[2024-04-16 13:52] LABS: ALB/GLOB Ratio 0.6 RATIO (0.9-2.4); AST(SGOT) 78 U/L (15-37); Alanine Aminotransfer ALT/SGPT 100 U/L (13-56); Albumin, Serum 2.6 g/dL (3.2-5.0); Alkaline Phosphatase 206 U/L (45-117); Anion Gap 8 (5-15); BUN 4 mg/dL (7-18); BUN/Creat Ratio 7.6 RATIO (10-20); Calcium,Total 8.9 mg/dL (8.5-10.1); Chloride 108 mmol/L (98-107); Creatinine, Serum 0.52 mg/dL (0.55-1.02); EST Glomerular Filtration Rate 141 mL/min (>60); Est Glom Filt Rate - Afr Amer 170 mL/min (>60); Globulin 4.7 g/dL (2.2-4.2); Glucose 83 mg/dL (74-106); Potassium 3.6 mmol/L (3.5-5.1); Protein, Total 7.3 g/dL (6.4-8.2); Sodium Level 136 mmol/L (136-145)
--- NOTE | 2024-04-16 13:59 | HP.PCM_ITS ---
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 Allergies No Known Allergies Allergy (Verified 04/16/24 11:19) Medications ?Medication ?Instructions ?Recorded ?Confirmed ?Type L.acid-B.animalis-B.bifidum-B.infantis cap PO DAILY 11/09/23 04/16/24 History 50 billion cell capsule,del rel (Fortify [place] Probiotic) multivit-min no.71-iron fum 28 cap PO 11/09/23 04/16/24 History mg-folate no.1 1 mg-dha 300 mg capsule (PNV-[place]) Last Menstrual Period: 06/16/23 : No PFSH PFSH Medical History Spontaneous vaginal delivery Complete miscarriage 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 Surgical History H/O section Social History adopted: No household members: family housing: house number of children: 6 current occupation: homemaker pets and animals: No history of recent travel: No sexually active: Yes Smoking Status: Never smoker alcohol intake: never substance use type: does not use well-balanced diet: daily or most days caffeine: No eating out: rarely or never during the past year weight has: remained stable what type of physical activity do you participate in: none tala/yarsanism: Shinto seatbelt use: sometimes do you feel safe at home: Yes additional social history: Spouse: Enedelia History 8 Elective abortions Hx Para 6 Spontaneous abortions 1 Hx # Term Pregnancies 6 Ectopic pregnancies Hx # Pregnancies Multiple births # of living children 6 Past Pregnancies Del. Date Name GA/Weeks Outcome Route Bth Weight Infant Gen Labor Lgth Anesthesia Del Locatn Provider FOB Unknown 40 live - full term 7pounds F emale ? none [facility] ? Enedelia Unknown 39 live - full term 6pounds 1 3oz Male ? none [facility] ? Enedelia Unknown 2014-Qian 41 live - full term 6 pounds 5 oz Female ? none [facility] ? Enedelia Unknown 2016- Teresa 41 live - full term 6 po unds Female ? epidural [facility] ? Enedelia 10/12/18 Kay 40 live - full term 7lbs 14oz Female ? ? [facility] Dr. Saleem ? 11/30/20 Jian 39 live - full term VB AC ? Male ? none [facility] GP ? Delivery Date: Last Updated by: Caren Navarro no complications possible 2degree tear Delivery Date: Last Updated by: Caren Navarro blood loss- but no replacement therapy given Delivery Date: Last Updated by: Caren Navarro No complication Delivery Date: Last Updated by: Carne Navarro Breech presentation Delivery Date: 11/30/20 Last Updated by: Caren Navarro Cholestatis HPI 40 wk ob Details: BRANDON SANCHEZ is a 33 year old who presents for routine OB visit. OB Visit ADA Calculator ? Estimated Delivery Date Method Current WG Current Estimate 04/16/24 Ultrasound #1 40w 0d Other Estimates 03/22/24 LMP (Uncertain) 43w 4d Expected Delivery Route/Plan patient counseled regarding risks/benefits of trial of labor versus repeat . ACOG/uptodate education given to patient. [] % likelihood of success per calculator TOLAC consent form signed: [] Labor Preferences- CB/BF classes: NA labor support person: Enedelia labor intervention preferences: [] pain management options preferred: [] cut cord/dad catch: [] : [] PP control planned: [] discussed possible routes of delivery and associated risks: [] special requests: [] Specific Issue/Plans Covid status: [] Flu vaccine: [] Tdap vaccine: [] Rhogam: NA LARC form signed: done Problem list reviewed and updated with the most current plan of care details and appropriate orders placed. Relevant counseling for the gestational age provided. Continue routine care and follow up unless otherwise noted in visit notes/problem list details Initial Weight: 161 lb Date -?-?-?-?-?-?-?-?-?-?-?-?- EGA Weight BP Urine Prot -?-?-?-?-?-?-?-?-?-?-?-?- Glucose FHR FuHt Pres Dilation -?-?-?-?-?-?-?-?-?-?-?-?- Effaced St Visit Note 11/10/23-?-?-?-?-?-?-?-?-?-?-?-?- 17w 3d 161 lb(+0 oz) 109/73 -?-?-?-?-?-?- ?-?-?-?-?-?- 154 ? ? -?-?-?-?-?-?-?-?-?-?-?-?- ? LC- AC/HC/FL measuring 18weeks. anatomy scan scheduled 11/20 consulted with ELANA, will wait until formal scan to change dates. declines genetics.plans . 12/13/23-?-?-?-?-?-?-?-?-?-?-?-?- 22w 1d 166 lb(+5 lb) 110/73 Negative -?-? -?-?-?-?-?-?-?-?-?-?- Negative 150 ? ? -?-?-?-?-?-?-?-?-?-?-?-?- ? - due date changed to reflect anatomy scan due date, previous bedside us consistent with that more so also, not the LMP. repeat gorwth at next visit 01/10/24-?-?-?-?-?-?-?-?-?-?-?-?- 26w 1d 171 lb(+10 lb) 123/78 Negative -?-? -?-?-?-?-?-?-?-?-?-?- Negative 151 26 ? -?-?-?-?-?-?-?-?-?-?-?- ?- ? MH-No Vb, LOF. Good FM. 3rd trim labs today. Growth US pending 01/22/24-?-?-?-?-?-?-?-?-?-?-?-?- 27w 6d 172 lb(+11 lb) 101/70 Negative -?-? -?-?-?-?-?-?-?-?-?-?- Negative 130 29 ? -?-?-?-?-?-?-?-?-?-?-?- ?- ? KW- no vb/cramping. good fm. US reviewed today. KW- no vb/cramping. good fm. US reviewed today. LARC today. 02/08/24-?-?-?-?-?-?-?-?-?-?-?-?- 30w 2d 176 lb(+15 lb) 115/73 Negative -?-? -?-?-?-?-?-?-?-?-?-?- Negative 156 31 ? -?-?-?-?-?-?-?-?-?-?-?- ?- ? JV- no lof, vaginal bleeding, or cramping other than some leg cramping at night. 02/28/24-?-?-?-?-?-?-?-?-?-?-?-?- 33w 1d 176 lb(+15 lb) 106/72 Negative -?-? -?-?-?-?-?-?-?-?-?-?- Negative 130 34 ? -?-?-?-?-?-?-?-?-?-?-?- ?- ? KW- no vb/lof/ctx. good fm. no concerns today 03/11/24-?-?-?-?-?-?-?-?-?-?-?-?- 34w 6d 175 lb(+14 lb) 114/82 -?-?-?-?-?-?- ?-?-?-?-?-?- 140 35 ? -?-?-?-?-?-?-?-?-?-?-?- ?- ? SM- no vb lof good fm no reuglar ctx questionable US emma next week in office to determine position if unsure 03/19/24-?-?-?-?-?-?-?-?-?-?-?-?- 36w 0d 177 lb 6 oz(+16 lb 6 oz) 110/63 Negative -?-?-?-?-?-?-?-?-?-?-?-?- Negative 157 35 Cephalic 0-?-?-?-?-?-?-?-?-?- ?-?-?- ? KW- no vb/lof/ctx. good fm. GBS today. doing well. cephalic on US. 03/27/24-?-?-?-?-?-?-?-?-?-?-?-?- 37w 1d 175 lb 8 oz(+14 lb 8 oz) 114/77 Negative -?-?-?-?-?-?-?-?-?-?-?-?- Negative 155 36 Cephalic 0-?-?-?-?-?-?-?-?-?- ?-?-?- ? KW- no vb/lof/ctx. good fm. no concerns today. 04/03/24-?-?-?-?-?-?-?-?-?-?-?-?- 38w 1d 174 lb 8 oz(+13 lb 8 oz) 118/77 Trace -? -?-?-?-?-?-?-?-?-?-?-?- Negative 155 37 Cephalic 1-?-?-?-?-?-?-?-?-?- ?-?-?- 60 -2 kw- no vb/lof/ctx. good f m. if appropriate would like MS next week. 04/11/24-?-?-?-?-?-?-?-?-?-?-?-?- 39w 2d 177 lb 2 oz(+16 lb 2 oz) 108/72 Negative -?-?-?-?-?-?-?-?-?-?-?-?- Negative 148 39 Cephalic 1.5-?-?-?-?-?-?-?-?- ?-?-?-?- 80 -2 JV- pt requesting a membr ane sweep. Labor precautions discussed. no complaints. 04/16/24-?-?-?-?-?-?-?-?-?-?-?-?- 40w 0d 176 lb 4 oz(+15 lb 4 oz) 107/73 Negative -?-?-?-?-?-?-?-?-?-?-?-?- Negative 130 34 Cephalic 2-?-?-?-?-?-?-?-?-?- ?-?-?- ? SM- no vb lof good fm no regular ctx co terrible itching ead to toe, feels like when she had cholestasis last ACOG First Trimester First Trimester: Desire for , Alcohol, Tobacco Cessation, Illicit/Recreational Drug/Substance Use, Intimate Partner Violence, Barriers to care, Unstable Housing, Communication Barriers, Environmental/Work Hazards, Anticipated Course of Care, Toxoplasmosis Precations, Use of Any medications, Sexual activity, Exercise, Dental Care, Sauna/Hot tub use, Seat Belt use, Childbirth classes/Hospital facilities, Travel, Indications for Ultrasound and Screening for Aneuploidy; Discussed Second Trimester Second Trimester: Signs and Symptoms of Labor, Selecting a care provider, Reproductive Life Planning & Contreception, Care Planning, Tobacco Cessation, Depression/Anxiety and Intimate Partner Violence Third Trimester Third Trimester: Pain Management Plans, Labor support person(s), Immediate Larc, Movement Monitoring and Feeding No ; Discussed Trial of Labor after Counseling and Discussed Circumcision preference ROS Const Reports system reviewed and no additional complaints, except as documented Card Reports system reviewed and no additional complaints, except as documented Resp Reports system reviewed and no additional complaints, except as documented GI Reports system reviewed and no additional complaints, except as documented and Reports nausea Reports system reviewed and no additional complaints, except as documented Musc Reports system reviewed and no additional complaints, except as documented Exam Const General: cooperative, healthy appearing, comfortable and anxious [facility] Head: normal to inspection Nose: external nose normal Face and sinus: normal facial exam Neck Neck: normal visual inspection, full ROM and no lymphadenopathy Thyroid: thyroid normal Chest Chest palpation & inspection: normal inspection of the chest Resp Effort & Inspection: normal respiratory effort GI Inspection: normal to inspection Palpation: soft and other (gravid uterus) Other: infant vertex and appropriate size for gestational age Other: Cervical Exam: Extrem General: pedal edema Results POC Urinalysis 2 Dip (Clinic) Office Urine Glucose Negative ? Last Edit by Nicolle Canchola on 04/16/24 11:23 Office Urine Protein Negative ? Last Edit by Nicolle Canchola on 04/16/24 11:23 Coding Level of Care Code No Charge Diagnoses History of miscarriage, currently O09.299 Supervision of high risk in second trimester O09.92 Trimester: second trimester 40 weeks gestation of Z3A.40 Weeks of gestation: 40 weeks Hx of section Z98.891 AMA (advanced maternal age) multigravida 35+ O09.529 Pruritus of O99.719; L29.9 Assessment and Plan Assessment and Plan (1) History of miscarriage, currently : Status: Acute (2) Supervision of high-risk : Status: Acute Qualifiers: Trimester: second trimester Qualified Code(s): O09.92 - Supervision of high risk , unspecified, second trimester Comment: PRR, , ADA 03/22/24, PC Mario Oliver Marie, Anna, Rosanna, Norman, Enedelia (3) : Status: Acute Qualifiers: Weeks of gestation: 40 weeks Qualified Code(s): Z3A.40 - 40 weeks gestation of Comment: GBS neg, declines genetic & carrier testing (4) Hx of section: Status: Acute Comment: 4th for breech followed by successful x 2. Desires TOLAC. (5) AMA (advanced maternal age) multigravida 35+: Status: Acute (6) Pruritus of : Status: Acute Orders: Orders POC Urinalysis 2 Dip (Clinic) Today Plan plan admit for labs and IOL due to ama and suspected cholestasis
[2024-04-16 14:11] LABS: Syphilis Antibodies Non-reactive
--- NOTE | 2024-04-16 15:51 | HP.PCM.OB_ITS ---
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 Home Medications ?Medication ?Instructions ?Recorded ?Last Taken ?Type L.acid-B.animalis-B.bifidum-B.infantis cap PO DAILY 11/09/23 Unknown History 50 billion cell capsule,del rel (Fortify [place] Probiotic) multivit-min no.71-iron fum 28 cap PO 11/09/23 Unknown History mg-folate no.1 1 mg-dha 300 mg capsule (PNV-[place]) Allergy/AdvReac Type Severity Reaction Status Date / Time No Known Allergies Allergy Verified 04/16/24 15:15 Surgical History H/O section Social History adopted: No household members: family housing: house number of children: 6 current occupation: homemaker pets and animals: No history of recent travel: No sexually active: Yes Smoking Status: Never smoker alcohol intake: never substance use type: does not use well-balanced diet: daily or most days caffeine: No eating out: rarely or never during the past year weight has: remained stable what type of physical activity do you participate in: none tala/methodist: Muslim seatbelt use: sometimes do you feel safe at home: Yes additional social history: Spouse: Enedelia History 8 Elective abortions Hx Para 6 Spontaneous abortions 1 Hx # Term Pregnancies 6 Ectopic pregnancies Hx # Pregnancies Multiple births # of living children 6 Past Pregnancies Del. Date Name GA/Weeks Outcome Route Bth Weight Infant Gen Labor Lgth Anesthesia Del Locatn Provider FOB Unknown 2010- Melody 40 live - full term 7pounds Female [facility] Unknown 39 live - full term 6pounds 13oz Mal e [facility] Unknown 41 live - full term 6 pounds 5 oz Fem kevyn none Mi [facility] Enedelia Unknown 2017- Teresa 41 live - full term 6 pounds Fem kevyn epidural [facility] 10/12/18 Kay 40 live - full term 7lbs 14oz Female [facility] Dr. aSleem 11/30/20 Jian 39 live - full term Male none [facility] GP Delivery Date: Last Updated by: Caren Navarro no complications possible 2degree tear Delivery Date: Last Updated by: Caren Navarro blood loss- but no replacement therapy given Delivery Date: Last Updated by: Caren Navarro No complication Delivery Date: Last Updated by: Caren Navarro Breech presentation Delivery Date: 11/30/20 Last Updated by: Caren Navarro Cholestatis Visit Details Expected Delivery Route/Plan patient counseled regarding risks/benefits of trial of labor versus repeat . ACOG/uptodate education given to patient. [] % likelihood of success per calculator TOLAC consent form signed: [] Labor Preferences- CB/BF classes: NA labor support person: Enedelia labor intervention preferences: [] pain management options preferred: [] cut cord/dad catch: [] : [] PP control planned: [] discussed possible routes of delivery and associated risks: [] special requests: [] Plans Covid status: [] Flu vaccine: [] Tdap vaccine: [] Rhogam: NA LARC form signed: done Problem list reviewed and updated with the most current plan of care details and appropriate orders placed. Relevant counseling for the gestational age provided. Continue routine care and follow up unless otherwise noted in visit notes/problem list details OB Flowsheet Initial Weight: 161 lb Date -?-?-?-?-?-?-?-?-?-?-?-?- EGA Weight BP Urine Prot -?-?-?-?-?-?-?-?-?-?-?-?- Glucose FHR FuHt Pres Dilation -?-?-?-?-?-?-?-?-?-?-?-?- Effaced St Visit Note 11/10/23 -?-?-?-?-?-?-?-?-?-?-?-?- 17w 3d 161 lb (+0 oz) 109/73 -?-?-?-?-?-?-?-?-?-?-?-?- 154 -?-?-?-?-?-?-?-?-?-?-?-?- LC- AC/HC/FL shelly suring 18weeks. anatomy scan scheduled 11/20 consulted with SM, will wait until formal scan to change dates. declines genetics.plans . 12/13/23 -?-?-?-?-?-?-?-?-?-?-?-?- 22w 1d 166 lb (+5 lb) 110/73 Negative -?-?-?-?-?-?-?-?-?-?-?-?- Negative 150 -?-?-?-?-?-?-?-?-?-?-?-?- SM- due date whitney nged to reflect anatomy scan due date, previous bedside us consistent with that more so also, not the LMP. repeat gorwth at next visit 01/10/24 -?-?-?-?-?-?-?-?-?-?-?-?- 26w 1d 171 lb (+10 lb) 123/78 Negative -?-?-?-?-?-?-?-?-?-?-?-?- Negative 151 26 -?-?-?-?-?-?-?-?-?-?-?-?- -No Vb, LOF. G ojessie FM. 3rd trim labs today. Growth US pending 01/22/24 -?-?-?-?-?-?-?-?-?-?-?-?- 27w 6d 172 lb (+11 lb) 101/70 Negative -?-?-?-?-?-?-?-?-?-?-?-?- Negative 130 29 -?-?-?-?-?-?-?-?-?-?-?-?- KW- no vb/crampi ng. good fm. US reviewed today. KW- no vb/cramping. good fm. US reviewed today. LARC today. 02/08/24 -?-?-?-?--?-?-?-?-?-?-?-?- 30w 2d 176 lb (+15 lb) 115/73 Negative -?-?-?-?-?-?-?-?-?-?-?-?- Negative 156 31 -?-?-?-?-?-?-?-?-?-?-?-?- JV- no lof, vagi nal bleeding, or cramping other than some leg cramping at night. 02/28/24 -?-?-?-?-?-?-?-?-?-?-?-?- 33w 1d 176 lb (+15 lb) 106/72 Negative -?-?-?-?-?-?-?-?-?-?-?-?- Negative 130 34 -?-?-?-?-?-?-?-?-?-?-?-?- KW- no vb/lof/ct x. good fm. no concerns today 03/11/24 -?-?-?-?-?-?-?-?-?-?-?-?- 34w 6d 175 lb (+14 lb) 114/82 -?-?-?-?-?-?-?-?-?-?-?-?- 140 35 -?-?-?-?-?-?-?-?-?-?-?-?- SM- no vb lof go od fm no reuglar ctx [facility], next week in office to determine position if unsure 03/19/24 -?-?-?-?-?-?-?-?-?-?-?-?- 36w 0d 177 lb 6 oz (+16 lb 6 oz) 110/63 Negative -?-?-?-?-?-?-?-?-?-?-?-?- Negative 157 35 Cephalic 0 -?-?-?-?-?-?-?-?-?-?-?-?- KW- no vb/lof/ct x. good fm. GBS today. doing well. cephalic on US. 03/27/24 -?-?-?-?-?-?-?-?-?-?-?-?- 37w 1d 175 lb 8 oz (+14 lb 8 oz) 114/77 Negative -?-?--?-?-?-?-?-?-?-?-?-?- Negative 155 36 Cephalic 0 -?-?-?-?-?-?-?-?-?-?-?-?- KW- no vb/lof/ct x. good fm. no concerns today. 04/03/24 -?-?-?-?-?-?-?-?-?-?-?-?- 38w 1d 174 lb 8 oz (+13 lb 8 oz) 118/77 Trace -?-?-?-?-?-?-?-?-?-?-?-?- Negative 155 37 Cephalic 1 -?-?-?-?-?-?-?-?-?-?-?-?- 60 -2 kw- no vb/ lof/ctx. good fm. if appropriate would like MS next week. 04/11/24 -?-?-?-?-?-?-?-?-?-?-?-?- 39w 2d 177 lb 2 oz (+16 lb 2 oz) 108/72 Negative -?-?-?-?-?-?-?-?-?-?-?-?- Negative 148 39 Cephalic 1 .5 -?-?-?-?-?-?-?-?-?-?-?-?- 80 -2 JV- pt req uesting a membrane sweep. Labor precautions discussed. no complaints. 04/16/24 -?-?-?-?-?-?-?-?-?-?-?-?- 40w 0d 176 lb 4 oz (+15 lb 4 oz) 107/73 Negative -?-?-?-?--?-?-?-?-?-?-?-?- Negative 130 34 Cephalic 2 -?-?-?-?-?-?-?-?-?-?-?-?- SM- no vb lof go od fm no regular ctx co terrible itching ead to toe, feels like when she had cholestasis last Vital Signs Vital Signs Vital Signs: 04/16/24 13:38 04/16/24 13:38 04/16/24 13:38 Temperature Temperature Source Temporal Pulse Rate 90 Respiratory Rate Blood Pressure 108/69 BP Systolic 108 BP Diastolic 69 Pulse Ox 04/16/24 13:38 04/16/24 13:38 04/16/24 13:39 Temperature 97.0 F L Temperature Source Pulse Rate 92 Respiratory Rate 16 Blood Pressure BP Systolic BP Diastolic Pulse Ox 04/16/24 13:39 04/16/24 14:39 04/16/24 14:39 Temperature Temperature Source Pulse Rate 93 Respiratory Rate Blood Pressure 110/70 BP Systolic 110 BP Diastolic 70 Pulse Ox 97 04/16/24 14:54 04/16/24 14:54 04/16/24 15:09 Temperature Temperature Source Pulse Rate 100 Respiratory Rate Blood Pressure 106/70 110/75 BP Systolic 106 110 BP Diastolic 70 75 Pulse Ox 04/16/24 15:09 04/16/24 15:24 04/16/24 15:24 Temperature Temperature Source Pulse Rate 104 H 86 Respiratory Rate Blood Pressure 106/70 BP Systolic 106 BP Diastolic 70 Pulse Ox 04/16/24 15:32 04/16/24 15:32 04/16/24 15:32 Temperature 97.0 F L Temperature Source Temporal Pulse Rate Respiratory Rate 16 Blood Pressure BP Systolic BP Diastolic Pulse Ox 04/16/24 15:35 04/16/24 15:35 Temperature Temperature Source Pulse Rate 108 H Respiratory Rate Blood Pressure 116/79 BP Systolic 116 BP Diastolic 79 Pulse Ox Weight Weight: 176 lb Body Mass Index (BMI) 26.7 Labs Labs Labs: Blood Type A POSITIVE Antibody Screen NEGATIVE Hct 34.4 % (37-47) L Hgb 11.5 g/dL (12.0-15.0) L Obstetrics Ultrasound Syphilis Total Ab Non-reactive Rubella IgG Antibody Reactive (Nonreactive) Hep Bs Antigen Non-Reactive (Nonreactive) Hepatitis C Antibody Non-Reactive (Nonreactive) Chlamydia DNA (YOGI) Negative (Negative) N.gonorrhoeae DNA (YOGI) Negative (Negative) HIV 1&2 Antibody Non-Reactive (Nonreactive) Glucose 1 Hr 50 gm 100 mg/dL (70-140) Rhogam given: No Miscellaneous Test
--- NOTE | 2024-04-16 16:25 | PN.OBGYN_ITS ---
Subjective Subjective breathing through contractions Objective Data Objective Data Vital Signs: Vital Signs Temp Pulse Resp BP Pulse Ox 97.0 F L 108 H 16 116/79 97 04/16/24 15:32 04/16/24 15:35 04/16/24 15:32 04/16/24 15:35 04/16/24 13:39 Weight: 176 lb Body Mass Index (BMI) 26.7 Lab / Micro Data 04/16/24 13:00 04/16/24 13:00 Labs: Laboratory Results - last 24 hr 04/16/24 13:00: WBC 9.6, RBC 4.13 L, Hgb 11.5 L, Hct 34.4 L, MCV 83.3, MCH 27.8, MCHC 33.4, RDW Std Deviation 41.8, RDW Coeff of [place] 13.7, Plt Count 250, MPV 10.1, Immature Gran % (Auto) 0.500, Neut % (Auto) 79.3 H, Lymph % (Auto) 12.6 L, [place] % (Auto) 6.4, Eos % (Auto) 0.8, Baso % (Auto) 0.4, Absolute Neuts (auto) 7.6, Absolute Lymphs (auto) 1.21, Nucleated RBC % 0, Sodium 136, Potassium 3.6, Chloride 108 H, Carbon Dioxide 20.0 L, Anion Gap 8, BUN 4 L, Creatinine 0.52 L, Est GFR (MDRD) Af Amer 170, Est GFR (MDRD) Non-Af 141, BUN/Creatinine Ratio 7.6 L, Glucose 83, Calcium 8.9, Total Bilirubin 0.70, AST 78 H, ALT 100 H, Alkaline Phosphatase 206 H, Total Protein 7.3, Albumin 2.6 L, Globulin 4.7 H, A lbumin/Globulin Ratio 0.6 L, Syphilis Total Ab Non-reactive, Miscellaneous Test Cancelled, Blood Type A POSITIVE, Antibody Screen NEGATIVE Physical Exam Const alert and oriented x3 Resp normal respiratory effort and normal air movement Cardio regular rate and regular rhythm Manual OB Exam: estimated gestational size, presentation cephalic, dilated 5, effaced 80 and station -2 Psych mental status grossly normal Assessment & Plan (1) AMA (advanced maternal age) multigravida 35+: (2) Pruritus of : (3) Encounter for induction of labor: COMMENT: s/p spring bulb/ AROM clear fluid (4) Hx of section: COMMENT: 4th for breech followed by successful x 2. Desires TOLAC. (5) : QUALIFIERS: Weeks of gestation: 40 weeks Qualified Code(s): Z 3A.40 - 40 weeks gestation of COMMENT: GBS neg, declines genetic & carrier testing (6) Supervision of high-risk : QUALIFIERS: Trimester: second trimester Qualified Code(s): O09.92 - Supervision of high risk , unspecified, second trimester COMMENT: PRR, , ADA 03/22/24, PC Melody, Qian Martin Anna, Kay, Jian, Enedelia PLAN: Plan at 40 weeks IOL for suspected cholestasis. elevated LFTs. s/p londono, AROM clear fluid current tracing: FHT: Moderate variability reactive no decelerations category I tracing [place]: q2-5 Contractions reviewed tracing abnormalities since last note: none A/P: AROM for clear fluid anticipate desires unmedicated s/p x2 . Dr. Saleem updated on poc, exam and agrees with POC. midwifery co- management.
[2024-04-16] MEDS: Oxytocin 15 Units/NS 250ml 15 UNITS/250 ML IV.SOLN 2 UNITS IV (18:11)
[2024-04-16] MEDS: Lactated Ringers 1,000 ML 50 ML IV (18:11)
[2024-04-16] MEDS: Lidocaine 1% (20 ml mdv) 20 ML Vial INFILT (23:34)
[2024-04-16] MEDS: Methylergonovine 0.2 MG/ML Ampul IM (23:38)
--- NOTE | 2024-04-16 23:42 | EX.PCM.OBVAG ---
Assessment & Plan (1) Encounter for induction of labor: COMMENT: s/p londono bulb/ AROM clear fluid (2) AMA (advanced maternal age) multigravida 35+: (3) Pruritus of : (4) History of miscarriage, currently : (5) Supervision of high-risk : QUALIFIERS: Trimester: second trimester Qualified Code(s): O09.92 - Supervision of high risk , unspecified, second trimester COMMENT: PRR, , ADA 03/22/24, PC Mario Oliver Marie, Anna, Rosanna, Jian, Enedelia (6) : QUALIFIERS: Weeks of gestation: 40 weeks Qualified Code(s): Z3A.40 - 40 weeks gestation of COMMENT: GBS neg, declines genetic & carrier testing (7) Hx of section: COMMENT: 4th for breech followed by successful x 2. Desires TOLAC. (8) Cholestasis during : (9) Vaginal after : COMMENT: 40 IOL cholestasis girl Karen Maternal Data Information ADA Calculator Estimated Delivery Date Method Current WG Current Estimate 04/16/24 Ultrasound #1 40w 0d Other Estimates 03/22/24 LMP (Uncertain) 43w 4d Vaginal Delivery Maternal Presentation Maternal Presentation: see assessment and plan Vaginal Delivery Information Procedure Performed: Surgeon/Practitioner: Irene Saleem Pre-Procedure Diagnosis: see assessment and plan Post-Procedure Diagnosis: same Type of anesthesia: Epidural Estimated Blood Loss: 400 Findings Description of procedure: Patient began pushing and delivered the head in the direct OP presentation. The head was delivered atraumatically . The anterior and posterior shoulders delivered without complication followed by the rest of the infant and the infant was placed on the maternal abdomen. Delayed cord clamping was employed for approximately 60 seconds. Cord was clamped and cut and gentle traction was applied to the cord and the placenta delivered spontaneously immediately following it was noted to be intact with three-vessel cord. The perineum and vagina were inspected and was noted to have a first -degree laceration that was repaired in the usual fashion with 3-0 vicryl rapide after injecting with lidocaine and prepping with betadine. EBL was 400 cc with mild atonytreated with massage pitocin and methergine. Patient and tolerated delivery well. Presentation: Vertex Placental Delivery Description: Spontaneous Specimen collected: Yes Description of specimen(s) removed: placenta Dairy Technologist sheet rock nailer: No Post Vaginal Deli Medications given after delivery: Other (pitocin) Complication Complications: No Multi Select Codes Urinary/Genital Urinary/Genital CPT Codes: 79810 delivery [facility]
--- NOTE | 2024-04-16 23:44 | DCINST_ITS ---
Discharge Instructions Diet Discharge Diet: No restrictions DC O2, CPAP, BIPAP needs Home O2 Discharge instructions: No Dressing / Incision Discharge Activity: Return to Normal Activity, May Not Drive (while taking narcotic pain medications.) and May Shower May resume sexual activity in: 4-6 weeks Dressing / Incision Call your doctor if your incision/area has: Continuous Slow Oozing, Sudden Increased Bleeding, Increased Pain/ Swelling, Increased Redness and Foul Smelling Discharge Follow Up Care Please Follow Up With: Irene Saleem MD When: Call [phone] to make an appointment with your doctor in 6 weeks. If you had elevated blood pressure or 4th degree laceration, you will need to be seen in 2 weeks. Test Results: Test results from this visit will be discussed in further detail at your follow- up appointment, if applicable. Discharge Plan Admission Admit Date/Time: 04/16/24 12:25 Attending Provider: Irene Saleem Primary Care Provider: Maxwell Acevedo Discharge Orders/Prescriptions Prescriptions: No Action [facility] 28-1-300 mg capsule PO Fortify [place] Probiotic 50 billion cell capsule,delayed release(DR/EC) PO DAILY Referrals / Follow Up: Maxwell Acevedo MD [Primary Care Provider] - Disposition Disposition (needs filled in before D/C Order can be placed): Home, Self Care
[2024-04-17] VITALS (19 sets, daily range): BP systolic 97–122; BP diastolic 57–75; PULSE 81–100; RESP 14–19; TEMP 36.3–36.8; O2SAT 97–99
[2024-04-17] MEDS: Oxytocin 15 Units/NS 250ml 15 UNITS/250 ML IV.SOLN 83 UNITS IV (00:01)
[2024-04-17] MEDS: Naproxen 500 MG Tablet PO (01:20)
[2024-04-17] MEDS: 0.9% Saline Lock 10 ML Syringe IV (03:08)
--- NOTE | 2024-04-17 08:07 | PN.OBGYN_ITS ---
Subjective Subjective Patient doing well without complaints. Tolerating PO. Ambulating and voiding without difficulty. Feeding well. Denies chest pain, shortness of breath, calf pain/swelling, fevers, chills, lightheadedness. Pruritus resolved Objective Data Objective Data Vital Signs: Vital Signs Temp Pulse Resp BP Pulse Ox O2 Del Method 97.9 F 88 16 104/63 98 Room Air 04/17/24 05:05 04/17/24 05:05 04/17/24 05:05 04/17/24 05:05 04/17/24 05:05 04/17/24 05:05 Oxygen Delivery Method Room Air Weight: 176 lb Body Mass Index (BMI) 26.7 Intake & Output: Intake and Output for Last 24 Hours 04/15/24 04/16/24 04/17/24 23:59 23:59 23:59 Intake Total 349.67 / 349.67 417 / 417 Output Total 600 / 600 Balance 349.67 / 349.67 -183 / -183 Lab / Micro Data 04/16/24 13:00 04/16/24 13:00 Labs: Laboratory Results - last 24 hr 04/16/24 13:00: WBC 9.6, RBC 4.13 L, Hgb 11.5 L, Hct 34.4 L, MCV 83.3, MCH 27.8, MCHC 33.4, RDW Std Deviation 41.8, RDW Coeff of [place] 13.7, Plt Count 250, MPV 10.1, Immature Gran % (Auto) 0.500, Neut % (Auto) 79.3 H, Lymph % (Auto) 12.6 L, [place] % (Auto) 6.4, Eos % (Auto) 0.8, Baso % (Auto) 0.4, Absolute Neuts (auto) 7.6, Absolute Lymphs (auto) 1.21, Nucleated RBC % 0, Sodium 136, Potassium 3.6, Chloride 108 H, Carbon Dioxide 20.0 L, Anion Gap 8, BUN 4 L, Creatinine 0.52 L, Est GFR (MDRD) Af Amer 170, Est GFR (MDRD) Non-Af 141, BUN/Creatinine Ratio 7.6 L, Glucose 83, Calcium 8.9, Total Bilirubin 0.70, AST 78 H, ALT 100 H, Alkaline Phosphatase 206 H, Total Protein 7.3, Albumin 2.6 L, Globulin 4.7 H, A lbumin/Globulin Ratio 0.6 L, Syphilis Total Ab Non-reactive, Miscellaneous Test Cancelled, Blood Type A POSITIVE, Antibody Screen NEGATIVE Physical Exam Const alert and oriented x3 HEENT normocephalic Eyes PERRL Neck full ROM Resp normal respiratory effort GI soft to palpation GI Narrative: FF below U Assessment & Plan (1) Vaginal after : COMMENT: SM 40 IOL cholestasis girl Karen (2) Cholestasis during : QUALIFIERS: Trimester: unspecified trimester Qualified Code(s): O 26.649 - Intrahepatic cholestasis of , unspecified trimester (3) Pruritus of : QUALIFIERS: Trimester: unspecified trimester Qualified Code(s): O 99.719 - Diseases of the skin and subcutaneous tissue complicating , unspecified trimester; L29.9 - Pruritus, unspecified COMMENT: resolved PLAN: Plan s/p VAVD PPD # 1 1. routine post delivery care 2. breast feeding- support given 3. rh positive 4. rubella immune 5. CMP, CBC
[2024-04-17 09:13] LABS: Absolute Lymphocyte Count 1.15 X10^3/uL (0.83-4.51); Basophil# 0.05 X10^3/uL; Basophil% 0.3 % (0-1); Eosinophil# 0.04 X10^3/uL; Eosinophils% 0.2 % (0-5); Hematocrit 31.1 % (37-47); Hemoglobin 10.5 g/dL (12.0-15.0); Lymphocyte # 1.15 X10^3/ul (0.83-4.51); Lymphocyte % 6.7 % (19-41); Mean Corp Hgb Conc 33.8 g/dL (32-36); Mean Corpuscular Hgb 27.9 pg (27.0-32.0); Mean Corpuscular Volume 82.5 fL (81-99); Mean Platelet Vol. 9.8 fl (6.2-12.0); Monocyte% 5.2 % (0-10); NRBC Flagged by Analyzer 0 % (0-5); Neutrophil # 15.02 X10^3/uL (2.7-7.7); Neutrophil % 87.1 % (47-70); Platelet Count 246 K/mm3 (150-450); RBC Distribution Width CV 13.3 % (11.6-14.6); RBC Distribution Width SD 39.8 fl (35.1-43.9); Red Blood Count 3.77 M/mm3 (4.2-5.4); White Blood Count 17.3 K/mm3 (4.4-11.0)
[2024-04-17 09:49] LABS: ALB/GLOB Ratio 0.6 RATIO (0.9-2.4); AST(SGOT) 93 U/L (15-37); Alanine Aminotransfer ALT/SGPT 111 U/L (13-56); Albumin, Serum 2.3 g/dL (3.2-5.0); Alkaline Phosphatase 180 U/L (45-117); Anion Gap 9 (5-15); BUN 4 mg/dL (7-18); BUN/Creat Ratio 8.9 RATIO (10-20); Calcium,Total 8.9 mg/dL (8.5-10.1); Chloride 107 mmol/L (98-107); Creatinine, Serum 0.45 mg/dL (0.55-1.02); EST Glomerular Filtration Rate 169 mL/min (>60); Est Glom Filt Rate - Afr Amer 204 mL/min (>60); Estimated Creatinine Clearance 193.58 ml/min; Glucose 84 mg/dL (74-106); Potassium 3.8 mmol/L (3.5-5.1); Protein, Total 6.3 g/dL (6.4-8.2); Sodium Level 137 mmol/L (136-145)
[2024-04-18 03:00] VITALS: BP 109/57; PULSE 79; RESP 16; TEMP 36.4; O2SAT 100
--- NOTE | 2024-04-18 07:12 | PCM.PN.OB ---
Subjective Subjective Patient doing well without complaints. Tolerating PO. Ambulating and voiding without difficulty. feeding well. Denies chest pain, shortness of breath, calf pain/swelling, fevers, chills, lightheadedness. Objective Data Objective Data Vital Signs: Vital Signs Temp Pulse Resp BP Pulse Ox O2 Del Method 97.5 F L 79 16 109/57 L 100 Room Air 04/18/24 03:00 04/18/24 03:00 04/18/24 03:00 04/18/24 03:00 04/18/24 03:00 04/18/24 03:00 Oxygen Delivery Method Room Air Weight: 176 lb Body Mass Index (BMI) 26.7 Intake & Output: Intake and Output for Last 24 Hours 04/16/24 04/17/24 04/18/24 23:59 23:59 23:59 Intake Total 349.67 / 349.67 417 / 417 Output Total 1000 / 1000 Balance 349.67 / 349.67 -583 / -583 Lab / Micro Data 04/17/24 08:57 04/17/24 08:57 Labs: Laboratory Results - last 24 hr 04/17/24 08:57: WBC 17.3 H, RBC 3.77 L, Hgb 10.5 L, Hct 31.1 L, MCV 82.5, MCH 27.9, MCHC 33.8, RDW Std Deviation 39.8, RDW Coeff of [place] 13.3, Plt Count 246, MPV 9.8, Immature Gran % (Auto) 0.500, Neut % (Auto) 87.1 H, Lymph % (Auto) 6.7 L, [place] % (Auto) 5.2, Eos % (Auto) 0.2, Baso % (Auto) 0.3, Absolute Neuts (auto) 15.0 H, Absolute Lymphs (auto) 1.15, Nucleated RBC % 0, Sodium 137, Potassium 3.8, Chloride 107, Carbon Dioxide 21.0, Anion Gap 9, BUN 4 L, Creatinine 0.45 L, Estim Creat Clear Calc 193.58, Est GFR (MDRD) Af Amer 204, Est GFR (MDRD) Non-Af 169, BUN/Creatinine Ratio 8.9 L, Glucose 84, Calcium 8.9, Total Bilirubin 0.70, AST 93 H, ALT 111 H, Alkaline Phosphatase 180 H, Total Protein 6.3 L, Albumin 2.3 L, Globulin 4.0, Albumin/Globulin Ratio 0.6 L ROS Constitutional Constitutional: Reports systems reviewed and no addt'l complaints, except as documented Cardiovascular Cardiovascular: Reports systems reviewed and no addt'l complaints, except as documented Respiratory/Chest Respiratory/Chest: Reports systems reviewed and no addt'l complaints, except as documented Gastrointestinal Gastrointestinal: Reports systems reviewed and no addt'l complaints, except as documented Physical Exam Const alert, oriented x3 and no apparent distress HEENT Head and Scalp: atraumatic Resp normal respiratory effort GI soft to palpation and non-tender Bimanual Exam - Vag & Uterus: uterus non-tender Uterus Palpation: uterus fundus firm (below Umbilicus) Assessment & Plan (1) Vaginal after : COMMENT: 40 IOL cholestasis girl Karen PLAN: Plan s/p PPD # 2 1. routine post delivery care 2. breast feeding- support given 3. rh positive 4. rubella immune
[2024-04-18 07:49] VITALS: BP 114/64; PULSE 77; RESP 16; TEMP 36.4; O2SAT 98
== END 2024-04-18 10:05 | disposition home or self-care (01) | DRG 806 ==
PROVIDERS: Obstetrics & Gynecology; Admitting Provider Obstetrics & Gynecology; PCP Orthopaedic Surgery; Referring Provider Obstetrics & Gynecology; Visit Provider Obstetrics & Gynecology
DX: O34.219 Maternal care for unspecified type scar from previous cesarean delivery (principal); Z37.0 Single live birth; O26.643 Intrahepatic cholestasis of pregnancy, third trimester; O26.23 Pregnancy care for patient with recurrent pregnancy loss, third trimester; O70.0 First degree perineal laceration during delivery; Z3A.40 40 weeks gestation of pregnancy; Z87.59 Personal history of other complications of pregnancy, childbirth and the puerperium

== ENCOUNTER → 2024-05-29 | Outpatient (CLI) | payer OTHER, SELFPAY ==
[2024-06-04 17:08] LABS: HPV APTIMA, High Risk Negative (Negative)
== END | disposition home or self-care (01) ==
PROVIDERS: PCP Orthopaedic Surgery; Referring Provider Advanced Practice Midwife; Visit Provider Advanced Practice Midwife
DX: Z12.4 Encounter for screening for malignant neoplasm of cervix (principal)
CPT/HCPCS: 87624; 88175; G0145